=== PATIENT | male | born 1930 | race American Indian/Alaskan Native ===

== ENCOUNTER 2017-01-17 14:57 | Inpatient (IN) | payer MEDICARE, BC ==
[2017-01-17 14:58] VITALS: BMI 29.0
[2017-01-17] MEDS ORDERED: Sodium Chloride 0.9% 500 ML IV ONE ×2 (15:30→16:16)
[2017-01-17 16:18] LABS: BASO % 0.5 % (0.0-2.0); EOS % 0.5 % (0.0-4.0); HEMATOCRIT 35.7 % (35.0-51.0); LYMPH # 1.1 K/uL (1.0-4.3); LYMPH % 11.6 % (20.0-40.0); MEAN CORPUSCULAR HEMOGLOBIN 29.6 pg (27.0-31.0); MEAN CORPUSCULAR HGB CONC 32.9 g/dL (33.0-37.0); MEAN PLATELET VOLUME 8.1 fL (7.2-11.7); MONO # 0.8 K/uL (0.0-0.8); MONO % 8.5 % (0.0-10.0); RED CELL DISTRIBUTION WIDTH 13.6 % (11.5-14.5)
--- NOTE | 2017-01-17 16:23 | C.PDOC ---
History Of Present Illness 86 year old male [facility] for intractable hiccups, nausea, and vomiting x 1 week. Patient states he had coffee ground emesis this morning along with pleuritic pain in his chest. He denies shortness of breath, cough, fever, abdominal painm, dysuria/hematuria. Time Seen by Provider: 01/17/17 15:20 Chief Complaint (Nursing): GI Problem History Per: Patient, Family History/Exam Limitations: no limitations Onset/Duration Of Symptoms: Days (3 weeks) Current Symptoms Are (Timing): Still Present Severity: Moderate Quality Of Discomfort: "Pain" Associated Symptoms: Nausea, Vomiting, Other (Intractable hiccup) Past Medical History Reviewed: Historical Data, Nursing Documentation, Vital Signs Vital Signs: Last Vital Signs Temp 98.6 F 01/20/17 17:28 Pulse 61 01/20/17 17:28 Resp 20 01/20/17 17:28 BP 155/63 H 01/20/17 17:28 Pulse Ox 96 01/20/17 17:28 - Medical History PMH: COPD, HTN, Hypothyroidism Surgical History: Appendectomy (1946), Pacemaker Family History: States: No Known Family Hx - Social History Hx Tobacco Use: No Hx Alcohol Use: No Hx Substance Use: No - Immunization History Hx Tetanus Toxoid Vaccination: No Hx Influenza Vaccination: No Hx Pneumococcal Vaccination: Yes Review Of Systems Except As Marked, All Systems Reviewed And Found Negative. Constitutional: Negative for: Fever, Chills Cardiovascular: Negative for: Chest Pain, Palpitations Respiratory: Positive for: Pleuritic Pain. Negative for: Cough, Shortness of Breath Gastrointestinal: Positive for: Nausea, Vomiting, Other (Coffee ground emesis). Negative for: Abdominal Pain, Diarrhea Genitourinary: Negative for: Dysuria, Hematuria Physical Exam - Physical Exam Appears: Non-toxic, Other (Uncomfortable. Intermittent hiccups.) Skin: Normal Color, Warm, Dry, No Rash Head: Normacephalic Oral Mucosa: Moist Cardiovascular: Rhythm Regular Respiratory: Normal Breath Sounds, No Rales, No Rhonchi, No Wheezing Gastrointestinal/Abdominal: Normal Exam, Bowel Sounds, Soft, No Tenderness Extremity: Normal ROM, No Pedal Edema, No Calf Tenderness Neurological/Psych: Other (awake, alert, mildly confused) ED Course And Treatment - Laboratory Results Result Diagrams: 01/20/17 07:17 01/20/17 07:17 O2 Sat by Pulse Oximetry: 100 (Room air) Pulse Ox Interpretation: Normal Progress Note: Blood work, EKG, CXR, UA ordered and reviewed. Patient given IV NS bolus, IV protinix, IM thorazine, IV zofran. Patient sent to ED by Dr. Alva, plastics fabrication supervisor. He would like patient to be admitted under PMD Dr. Reid, GI is Dr. Espino. 5:55pm- Spoke with hospitalist Dr. Rachel, since patient is insured he should be admitted to medicine insurance verification rep Dr. Neli Larkin. Will discuss with Dr. Alva first. 6:05PM- Spoke with Dr. Alva, he agrees with admission under Dr. Neli Larkin. Dr. eNli Larkin contacted and agrees with admission to his service. 6:10pm- Patient sleeping comfortably, arousable to verbal stimuli. No current vomiting/hiccups. Reevaluation Time: 18:00 Reassessment Condition: Improved (Patient sleeping comfortably - nausea/vomiting /hiccups improved with zofran and thorazine) - Physician Consult Information Physician Contacted: Shireen Reid Outcome Of Conversation: Spoke with PMD, she requests hospitalist admission, she no longer does admissions at [facility]. Disposition - Disposition Disposition: HOSPITALIZED Disposition Time: 18:26 Condition: STABLE - Clinical Impression Clinical Impression: Intractable nausea and vomiting, Coffee ground emesis - Scribe Statement The provider has reviewed the documentation as recorded by the Scribe Markie Juan All medical record entries made by the Scribe were at my direction and personally dictated by me. I have reviewed the chart and agree that the record accurately reflects my personal performance of the history, physical exam, medical decision making, and the department course for this patient. I have also personally directed, reviewed, and agree with the discharge instructions and disposition. Decision To Admit - Pt Status Changed To: Hospital Disposition Of: Inpatient - Admit Certification Admit to Inpatient:: After my assessment, the patient will require hospitalization for at least two midnights. This is because of the severity of symptoms shown, intensity of services needed, and/or the medical risk in this patient being treated as an outpatient. - InPatient: Physician Admission Certification:: see notes - . Bed Request Type: Telemetry Admitting Physician: Eleno Larkin Patient Diagnosis: Coffee ground emesis, Intractable hiccups, Intractable nausea and vomiting
[2017-01-17 16:26] LABS: CHLORIDE 100 mmol/L (98-107)
[2017-01-17 16:27] LABS: MEAN CELL VOLUME 90.2 fL (80.0-94.0); POTASSIUM 4.2 mmol/L (3.6-5.2); SODIUM 138 mmol/L (132-148); WHITE BLOOD COUNT 9.2 K/uL (4.8-10.8)
[2017-01-17 16:28] LABS: INR 1.5
[2017-01-17 16:29] LABS: AST/SGOT 29 U/L (17-59); BILIRUBIN,TOTAL 0.2 mg/dL (0.2-1.3); CARBON DIOXIDE 28 mmol/L (22-30); GFR AFRICAN-AMERICAN > 60
[2017-01-17 16:30] LABS: ALB/GLOB RATIO 1.1 (1.0-2.1); ALKALINE PHOSPHATASE 64 U/L (38-126); ALT/SGPT 39 U/L (21-72); BLOOD UREA NITROGEN 25 mg/dL (9-20); CALCIUM 8.6 mg/dl (8.6-10.4); GLUCOSE,RANDOM 117 mg/dL (75-110); TOTAL PROTEIN 7.1 g/dL (6.3-8.3)
[2017-01-17] MEDS ORDERED: Baclofen 5 mg Tab PO PRN (19:21)
[2017-01-17] MEDS ORDERED: Simethicone 80 mg Chewtab PO PRN (19:21)
[2017-01-17 19:48] LABS: RBC URINE 1 /hpf (0-3); URINE BACTERIA RARE (<OCC); URINE BILIRUBIN NEGATIVE (NEGATIVE); URINE BLOOD NEGATIVE (NEGATIVE); URINE COLOR Yellow (YELLOW); URINE GLUCOSE (UA) NORMAL (Normal); URINE KETONE NEGATIVE (NEGATIVE); URINE LEUKOCYTE ESTERASE NEG Leu/uL (Negative); URINE PROTEIN NEGATIVE (NEGATIVE); URINE UROBILINOGEN NORMAL mg/dL (0.2-1.0); WBC URINE 6 /hpf (0-5)
[2017-01-18] MEDS ORDERED: Phytonadione 10 mg/ml Inj (Adult) SC STA (04:23)
[2017-01-18 07:30] LABS: BASO % 0.5 % (0.0-2.0); EOS # 0.1 K/uL (0.0-0.7); EOS % 1.2 % (0.0-4.0); HEMATOCRIT 32.2 % (35.0-51.0); LYMPH # 1.3 K/uL (1.0-4.3); LYMPH % 17.4 % (20.0-40.0); MEAN CELL VOLUME 90.1 fL (80.0-94.0); MEAN CORPUSCULAR HEMOGLOBIN 29.6 pg (27.0-31.0); MEAN CORPUSCULAR HGB CONC 32.8 g/dL (33.0-37.0); MEAN PLATELET VOLUME 7.9 fL (7.2-11.7); MONO # 0.7 K/uL (0.0-0.8); MONO % 9.5 % (0.0-10.0); NRBC % 0.1 % (0.0-2.0); RED CELL DISTRIBUTION WIDTH 13.5 % (11.5-14.5); WHITE BLOOD COUNT 7.4 K/uL (4.8-10.8)
[2017-01-18 07:39] LABS: CHLORIDE 104 mmol/L (98-107); SODIUM 139 mmol/L (132-148)
[2017-01-18 07:40] LABS: POTASSIUM 3.8 mmol/L (3.6-5.2)
[2017-01-18 07:42] LABS: ALKALINE PHOSPHATASE 51 U/L (38-126); ALT/SGPT 28 U/L (21-72); AST/SGOT 27 U/L (17-59); BILIRUBIN,TOTAL 0.2 mg/dL (0.2-1.3); BLOOD UREA NITROGEN 18 mg/dL (9-20); CARBON DIOXIDE 28 mmol/L (22-30); GFR AFRICAN-AMERICAN > 60; GLUCOSE,RANDOM 102 mg/dL (75-110); TOTAL PROTEIN 5.8 g/dL (6.3-8.3)
[2017-01-18] MEDS: Pantoprazole 40 mg EC Tab PO SCH (10:02)
[2017-01-18] MEDS: POLYETHYLENE GLYCOL 3350 17 GM/Dose PACKET PO SCH (10:02)
--- NOTE | 2017-01-18 11:33 | CP.PCM.CON ---
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 He also had history of chronic intractable hiccups with prior workup by GI, not related to the pacemaker. He lives by himself and he was admitted to [place] with pneumonia. After transfer to subacute rehabilitation in [place], the hiccups was associated with hives and vomiting eventually with coffee-ground he was admitted for further management. Currently on IV Zofran mild improvement Review of Systems - Review of Systems Systems not reviewed;Unavailable: Acuity of Condition - Constitutional Constitutional: Anorexia, Weakness - EENT Eyes: absent: Discharge Ears: absent: Ear Discharge, Dizziness Nose/Mouth/Throat: absent: Epistaxis - Cardiovascular Cardiovascular: absent: Acrocyanosis, Diaphoresis, Palpitations, Syncope - Respiratory Respiratory: absent: Cough, Dyspnea, Hemoptysis - Gastrointestinal Gastrointestinal: Belching, Hematemesis, Vomiting. absent: Abdominal Pain - Genitourinary Genitourinary: absent: Change in Urinary Stream Past Patient History - Past Medical History & Family History Past Medical History?: Yes - Past Social History Smoking Status: Former Smoker - CARDIAC Hx Hypertension: Yes Hx Pacemaker: Yes - PULMONARY Hx Chronic Obstructive Pulmonary Disease (COPD): Yes - NEUROLOGICAL HX Cerebrovascular Accident: Yes - ENDOCRINE/METABOLIC Hx Diabetes Mellitus Type 2: Yes Hx Hypothyroidism: Yes - MUSCULOSKELETAL/RHEUMATOLOGICAL Hx Falls: No - PSYCHIATRIC Hx Substance Use: No - SURGICAL HISTORY Hx Appendectomy: Yes (1945) - ANESTHESIA Hx Anesthesia: Yes Hx Anesthesia Reactions: No Meds Allergies/Adverse Reactions: Allergies Allergy/AdvReac Type Severity Reaction Status Date / Time No Known Allergies Allergy Verified 02/01/15 00:08 - Medications Medications: Current Medications Amlodipine Besylate (Norvasc) 10 mg PO DAILY [facility] Last Admin: 01/18/17 10:02 Dose: 10 mg Baclofen (Lioresal) 2.5 mg PO TID PRN PRN Reason: Hiccups Levetiracetam (Keppra) 500 mg PO Q12H [facility] Last Admin: 01/18/17 06:33 Dose: 500 mg Pantoprazole Sodium (Protonix Ec Tab) 40 mg PO DAILY [facility] Last Admin: 01/18/17 10:02 Dose: 40 mg Polyethylene Glycol (Miralax) 17 gm PO DAILY [facility] Last Admin: 01/18/17 10:02 Dose: 17 gm Simethicone (Mylicon Chew Tab) 80 mg PO Q6H PRN PRN Reason: GI distress Physical Exam - Constitutional Appears: Toxic - Head Exam Head Exam: ATRAUMATIC - Eye Exam Eye Exam: EOMI, PERRL - ENT Exam ENT Exam: Mucous Membranes Moist - Neck Exam Neck exam: Negative for: Lymphadenopathy, Thyromegaly - Respiratory Exam Respiratory Exam: Clear to Auscultation Bilateral. absent: Rales - Cardiovascular Exam Cardiovascular Exam: REGULAR RHYTHM. absent: Systolic Murmur - GI/Abdominal Exam GI & Abdominal Exam: Normal Bowel Sounds. absent: Organomegaly - Rectal Exam Rectal Exam: Deferred - Extremities Exam Extremities exam: Positive for: normal capillary refill. Negative for: calf tenderness - Neurological Exam Neurological exam: Alert, Oriented x3 - Psychiatric Exam Psychiatric exam: Normal Affect - Skin Skin Exam: Dry Results - Vital Signs Recent Vital Signs: Last Vital Signs Temp 97.4 F L 01/18/17 07:00 Pulse 72 01/18/17 07:00 Resp 18 01/18/17 07:00 BP 181/84 H 01/18/17 07:00 Pulse Ox 98 01/18/17 07:00 - Labs Result Diagrams: 01/18/17 07:20 01/18/17 07:20 Labs: Laboratory Results - last 24 hr 01/17/17 01/17/17 01/18/17 18:50 21:43 07:20 WBC 7.4 RBC 3.57 L Hgb 10.6 L Hct 32.2 L MCV 90.1 MCH 29.6 MCHC 32.8 L RDW 13.5 Plt Count 298 MPV 7.9 Neut % (Auto) 71.4 Lymph % (Auto) 17.4 L Pacific % (Auto) 9.5 Eos % (Auto) 1.2 Baso % (Auto) 0.5 Neut # 5.3 Lymph # 1.3 Pacific # 0.7 Eos # 0.1 Baso # 0.0 Sodium 139 Potassium 3.8 Chloride 104 Carbon Dioxide 28 Anion Gap 11 BUN 18 Creatinine 0.8 Est GFR ( Amer) > 60 Est GFR (Non-Af Amer) > 60 POC Glucose (mg/dL) 133 H Random Glucose 102 Calcium 8.0 L Total Bilirubin 0.2 AST 27 ALT 28 Alkaline Phosphatase 51 Total Protein 5.8 L Albumin 2.9 L D Globulin 2.9 Albumin/Globulin Ratio 1.0 Urine Color Yellow Urine Clarity Clear Urine pH 6.0 Ur Specific Gary 1.019 Urine Protein Negative Urine Glucose (UA) Normal Urine Ketones Negative Urine Blood Negative Urine Nitrate Negative Urine Bilirubin Negative Urine Urobilinogen Normal Ur Leukocyte Esterase Neg Urine WBC (Auto) 6 H Urine RBC (Auto) 1 Urine Bacteria Rare Assessment & Plan (1) Hypertension Status: Chronic (2) Status post biventricular cardiac pacemaker insertion Status: Chronic (3) Intractable hiccups Status: Acute
[2017-01-18] MEDS ORDERED: Etomidate 20 mg/10ml Inj IV ONE (12:16)
[2017-01-18] MEDS ORDERED: Propofol 10 mg/ml Inj (20 ML) ONE (12:16)
[2017-01-18] MEDS ORDERED: Midazolam 2 MG/2 ML VIAL ONE (12:16)
[2017-01-18] MEDS ORDERED: Phytonadione 10 mg/ml Inj (Adult) SC ONE (13:00)
[2017-01-18] MEDS ORDERED: Magnesium Citrate Oral SOL (300 ml) PO ONE (13:30)
[2017-01-18] MEDS: Baclofen 5 mg Tab PO PRN (14:53)
[2017-01-18] MEDS ORDERED: Bisacodyl 5mg EC Tab PO ONE (18:00)
--- NOTE | 2017-01-18 18:56 | CP.PCM.HP ---
History of Present Illness - History of Present Illness History of Present Illness: 86-year-old man with a history of hypertension, complete heart block with permanent pacemaker, the generator was changed in 2012. He also had a history of chronic intractable hiccup with prior workup by GI, not related to the pacemaker. He lives by himself and he was admitted to [place] with pneumonia. After transfer to subacute rehabilitation in the [place], the hiccup also associated with hives and vomiting eventually with coffee ground he was admitted for further management. currently on IV Zofran with mild improvement. Present on Admission - Present on Admission Any Indicators Present on Admission: No Past Patient History - Past Medical History & Family History Past Medical History?: Yes - Past Social History Smoking Status: Former Smoker - CARDIAC Hx Hypertension: Yes Hx Pacemaker: Yes - PULMONARY Hx Chronic Obstructive Pulmonary Disease (COPD): Yes - NEUROLOGICAL HX Cerebrovascular Accident: Yes - ENDOCRINE/METABOLIC Hx Diabetes Mellitus Type 2: Yes Hx Hypothyroidism: Yes - MUSCULOSKELETAL/RHEUMATOLOGICAL Hx Falls: No - PSYCHIATRIC Hx Substance Use: No - SURGICAL HISTORY Hx Appendectomy: Yes (1945) - ANESTHESIA Hx Anesthesia: Yes Hx Anesthesia Reactions: No Meds Allergies/Adverse Reactions: Allergies Allergy/AdvReac Type Severity Reaction Status Date / Time No Known Allergies Allergy Verified 03/26/17 02:45 Physical Exam - Constitutional Appears: Well - Head Exam Head Exam: ATRAUMATIC, NORMAL INSPECTION, NORMOCEPHALIC - Eye Exam Eye Exam: EOMI, Normal appearance, PERRL Pupil Exam: NORMAL ACCOMODATION, PERRL - ENT Exam ENT Exam: Mucous Membranes Moist, Normal Exam - Neck Exam Neck exam: Positive for: Normal Inspection - Respiratory Exam Respiratory Exam: Decreased Breath Sounds - Cardiovascular Exam Cardiovascular Exam: REGULAR RHYTHM, +S1, +S2 - GI/Abdominal Exam GI & Abdominal Exam: Diminished Bowel Sounds, Soft - Rectal Exam Rectal Exam: Deferred Results - Vital Signs Recent Vital Signs: Last Vital Signs Temp 98.2 F 01/18/17 15:05 Pulse 60 01/18/17 15:30 Resp 20 01/18/17 15:05 BP 124/56 L 01/18/17 15:05 Pulse Ox 99 01/18/17 15:05 - Labs Result Diagrams: 01/20/17 07:17 01/20/17 07:17 Labs: Laboratory Results - last 24 hr 01/17/17 01/17/1701/18/17 18:50 21:43 07:20 WBC 7.4 RBC 3.57 L Hgb 10.6 L Hct 32.2 L MCV 90.1 MCH 29.6 MCHC 32.8 L RDW 13.5 Plt Count 298 MPV 7.9 Neut % (Auto) 71.4 Lymph % (Auto) 17.4 L Rincon % (Auto) 9.5 Eos % (Auto) 1.2 Baso % (Auto) 0.5 Neut # 5.3 Lymph # 1.3 Rincon # 0.7 Eos # 0.1 Baso # 0.0 Sodium 139 Potassium 3.8 Chloride 104 Carbon Dioxide 28 Anion Gap 11 BUN 18 Creatinine 0.8 Est GFR ( Amer) > 60 Est GFR (Non-Af Amer) > 60 POC Glucose (mg/dL) 133 H Random Glucose 102 Calcium 8.0 L Total Bilirubin 0.2 AST 27 ALT 28 Alkaline Phosphatase 51 Total Protein 5.8 L Albumin 2.9 L D Globulin 2.9 Albumin/Globulin Ratio 1.0 Urine Color Yellow Urine Clarity Clear Urine pH 6.0 Ur Specific Hoffman 1.019 Urine Protein Negative Urine Glucose (UA) Normal Urine Ketones Negative Urine Blood Negative Urine Nitrate Negative Urine Bilirubin Negative Urine Urobilinogen Normal Ur Leukocyte Esterase Neg Urine WBC (Auto) 6 H Urine RBC (Auto) 1 Urine Bacteria Rare Assessment & Plan (1) CVA (cerebral infarction) Status: Acute (2) Coffee ground emesis Status: Acute (3) Intractable nausea and vomiting Status: Acute (4) Muscle weakness Status: Acute (5) Neck stiffness Status: Acute (6) Hypertension Status: Chronic (7) Status post biventricular cardiac pacemaker insertion Status: Chronic - Assessment and Plan (Free Text) Plan: Consult GI Consult cardiology [facility] Thien Cunningham Protonix Miralax Mylicon
[2017-01-18] MEDS: Sucralfate 1 gm/10 ml Oral Susp UD PO SCH (22:09)
[2017-01-18 22:40] LABS: CARCINOEMBRYONIC ANTIGEN 2.5 ng/mL (0-3.0)
[2017-01-19] MEDS: Sucralfate 1 gm/10 ml Oral Susp UD PO SCH ×2 (06:48→21:21)
[2017-01-19 08:47] LABS: BASO # 0.1 K/uL (0.0-0.2); BASO % 0.6 % (0.0-2.0); EOS # 0.1 K/uL (0.0-0.7); LYMPH # 1.4 K/uL (1.0-4.3)
[2017-01-19 08:48] LABS: CHLORIDE 100 mmol/L (98-107)
[2017-01-19 08:49] LABS: SODIUM 136 mmol/L (132-148)
[2017-01-19 08:51] LABS: AST/SGOT 21 U/L (17-59); BILIRUBIN,TOTAL 0.3 mg/dL (0.2-1.3); BLOOD UREA NITROGEN 14 mg/dL (9-20); CARBON DIOXIDE 29 mmol/L (22-30); EOS % 0.6 % (0.0-4.0); GFR AFRICAN-AMERICAN > 60; HEMATOCRIT 31.8 % (35.0-51.0); MEAN CELL VOLUME 90.6 fL (80.0-94.0); MEAN CORPUSCULAR HEMOGLOBIN 29.1 pg (27.0-31.0); MEAN CORPUSCULAR HGB CONC 32.1 g/dL (33.0-37.0); MONO % 8.8 % (0.0-10.0); RED CELL DISTRIBUTION WIDTH 13.4 % (11.5-14.5)
[2017-01-19 08:52] LABS: ALKALINE PHOSPHATASE 54 U/L (38-126); ALT/SGPT 30 U/L (21-72); GLUCOSE,RANDOM 99 mg/dL (75-110); WHITE BLOOD COUNT 11.5 K/uL (4.8-10.8)
[2017-01-19 09:07] LABS: CA 19-9 54.9 U/mL (0-37)
[2017-01-19] MEDS: POLYETHYLENE GLYCOL 3350 17 GM/Dose PACKET PO SCH (09:32)
[2017-01-19] MEDS: Pantoprazole 40 mg EC Tab PO SCH (09:32)
[2017-01-19] MEDS ORDERED: Fluconazole IV 100mg/50 ml NS 50 ML IVPB SCH (10:00)
[2017-01-19] MEDS ORDERED: Phytonadione 10 mg/ml Inj (Adult) SC STA (10:36)
--- NOTE | 2017-01-19 11:07 | PN ---
DATE: 01/19/2017 LOCATION: 657, bed B. This is an 86-year-old male post upper endoscopy yesterday, seen and examined in rounds without repor aayush significant clinical changes. No reported active bleeding. The entire chart is reviewed, includ ing but not limited to most recent lab and the radiology study results, current and the previous medi cation list, current and the previous medical events with allergies to medication list. Case discussed at length with the staff, and the patient had subsequent drop of hemoglobin to 10.2, h ematocrit 31.8 with leukocytosis of 11.5 with low calcium 8.0, and low albumin 3.0, low total protein 6.0. His CA 19-9 was reported to be elevated to 54.9. His PT still elevated at 16.9, but normal PTT. PHYSICAL EXAMINATION: GENERAL: An 86-year-old male, appears to be awake, alert, oriented. VITAL SIGNS: Afebrile with pulse of 64, respiratory rate 20-22, with blood pressure of 136/64. HEENT: Showed pale, dry oral mucoid membrane. Nonicteric sclerae. LUNGS: Few scattered crepitations with decreased air entry at bases. HEART: Positive S1 and S2. ABDOMEN: Soft with mild generalized tenderness. No mass or organomegaly. No rebound tenderness or guarding. RECTAL: Positive tone, guaiac positive stool. EXTREMITIES: With mild lower extremity edematous changes. No clubbing or cyanosis. NEUROLOGIC: No reported new neurological deficits, sensory or motor. IMPRESSION: 1. Reexacerbation of peptic ulcer disease with hiatus hernia, moderate to large in size. 2. Reported hematemesis before, none this morning. 3. Anemia, rule out lower gastrointestinal tract source of blood loss also versus possible occult ga strointestinal malignancy. 4. Known history of hypothyroidism, hypertension, and chronic obstructive pulmonary disease, as well as status post appendectomy. 5. Cardiac arrhythmia with status post pacemaker insertion. 6. Coagulopathy, most likely drug-induced. SUGGESTIONS: 1. I agree with your plan. 2. Vitamin K subQ. 3. Antireflux measures. The patient is for colonoscopy after adequate and slow preparation. Brian Henley MD cc: 14 TT: 01/19/2017 11:06:19 Confirmation # [id number] Dictation # [id number]
[2017-01-19] MEDS: Benzocaine/Menthol (Cepacol) Lozenge PO PRN (12:10)
[2017-01-19] MEDS: Baclofen 5 mg Tab PO PRN ×2 (12:11→21:21)
[2017-01-19] MEDS ORDERED: Peg-Electrolyte Oral Soln 4L (Golytely) PO ONE (13:00)
[2017-01-19] MEDS ORDERED: Bisacodyl 5mg EC Tab PO ONE (17:00)
--- NOTE | 2017-01-19 17:11 | CP.PCM.PN ---
Subjective - Date & Time of Evaluation Date of Evaluation: 01/19/17 Time of Evaluation: 12:40 - Subjective Subjective: clinically same Objective - Vital Signs/Intake and Output Vital Signs (last 24 hours): Temp Pulse Resp BP Pulse Ox 98.3 F 60 20 151/61 H 97 01/19/17 15:56 01/19/17 15:56 01/19/17 15:56 01/19/17 15:56 01/19/17 15:56 Intake and Output: 01/19/17 01/19/17 06:59 18:59 Output Total 200 Balance -200 - Medications Medications: Current Medications Amlodipine Besylate (Norvasc) 10 mg PO DAILY [facility] Last Admin: 01/19/17 09:32 Dose: 10 mg Baclofen (Lioresal) 5 mg PO TID PRN PRN Reason: Hiccups Last Admin: 01/19/17 12:11 Dose: 5 mg Benzocaine/Menthol (Cepacol Sore Throat) 1 karine PO Q4 PRN PRN Reason: Sore Throat Last Admin: 01/19/17 12:10 Dose: 1 karine Fluconazole (Diflucan Iv 100 Mg/50 Ml Ns) 50 mls @ 100 mls/hr IVPB DAILY [facility] Last Admin: 01/19/17 09:33 Dose: 100 mls/hr Levetiracetam (Keppra) 500 mg PO Q12H [facility] Last Admin: 01/19/17 06:48 Dose: 500 mg Metoclopramide HCl (Reglan) 5 mg IVP Q12 [facility] Last Admin: 01/19/17 09:32 Dose: 5 mg Pantoprazole Sodium (Protonix Ec Tab) 40 mg PO DAILY [facility] Last Admin: 01/19/17 09:32 Dose: 40 mg Polyethylene Glycol (Miralax) 17 gm PO DAILY [facility] Last Admin: 01/19/17 09:32 Dose: 17 gm Simethicone (Mylicon Chew Tab) 80 mg PO Q6H PRN PRN Reason: GI distress Sucralfate (Carafate Oral Susp) 1 gm PO ACBHS [facility] Last Admin: 01/19/17 06:48 Dose: 1 gm - Labs Labs: 01/19/17 08:33 01/19/17 08:33 PT 16.9 SECONDS (9.7-12.2) H 01/17/17 16:09 INR 1.5 01/17/17 16:09 APTT 32 SECONDS (21-34) 01/17/17 16:09 - Constitutional Appears: Well - Head Exam Head Exam: ATRAUMATIC, NORMAL INSPECTION, NORMOCEPHALIC - Eye Exam Eye Exam: EOMI, Normal appearance, PERRL Pupil Exam: NORMAL ACCOMODATION, PERRL - ENT Exam ENT Exam: Mucous Membranes Moist, Normal Exam - Neck Exam Neck Exam: Full ROM, Normal Inspection. absent: Lymphadenopathy - Respiratory Exam Respiratory Exam: Decreased Breath Sounds - Cardiovascular Exam Cardiovascular Exam: REGULAR RHYTHM, +S1, +S2 - GI/Abdominal Exam GI & Abdominal Exam: Soft, Diminished Bowel Sounds - Rectal Exam Rectal Exam: Deferred Assessment and Plan (1) CVA (cerebral infarction) Status: Acute (2) Coffee ground emesis Status: Acute (3) Intractable nausea and vomiting Status: Acute (4) Muscle weakness Status: Acute (5) Neck stiffness Status: Acute (6) Hypertension Status: Chronic (7) Status post biventricular cardiac pacemaker insertion Status: Chronic - Assessment and Plan (Free Text) Plan: Continue as ordered Continue Tia Alva
--- NOTE | 2017-01-19 20:18 | CP.PCM.PN ---
Subjective - Date & Time of Evaluation Date of Evaluation: 01/19/17 Time of Evaluation: 16:00 - Subjective Subjective: improved, still with hiccups, EGD with esophageal gisella Objective - Vital Signs/Intake and Output Vital Signs (last 24 hours): Temp Pulse Resp BP Pulse Ox 98.3 F 60 20 151/61 H 97 01/19/17 15:56 01/19/17 15:56 01/19/17 15:56 01/19/17 15:56 01/19/17 15:56 - Medications Medications: Current Medications Amlodipine Besylate (Norvasc) 10 mg PO DAILY [facility] Last Admin: 01/19/17 09:32 Dose: 10 mg Baclofen (Lioresal) 5 mg PO TID PRN PRN Reason: Hiccups Last Admin: 01/19/17 12:11 Dose: 5 mg Benzocaine/Menthol (Cepacol Sore Throat) 1 karine PO Q4 PRN PRN Reason: Sore Throat Last Admin: 01/19/17 12:10 Dose: 1 karine Fluconazole (Diflucan Iv 100 Mg/50 Ml Ns) 50 mls @ 100 mls/hr IVPB DAILY [facility] Last Admin: 01/19/17 09:33 Dose: 100 mls/hr Levetiracetam (Keppra) 500 mg PO Q12H [facility] Last Admin: 01/19/17 06:48 Dose: 500 mg Metoclopramide HCl (Reglan) 5 mg IVP Q12 [facility] Last Admin: 01/19/17 09:32 Dose: 5 mg Pantoprazole Sodium (Protonix Ec Tab) 40 mg PO DAILY [facility] Last Admin: 01/19/17 09:32 Dose: 40 mg Polyethylene Glycol (Miralax) 17 gm PO DAILY [facility] Last Admin: 01/19/17 09:32 Dose: 17 gm Simethicone (Mylicon Chew Tab) 80 mg PO Q6H PRN PRN Reason: GI distress Sucralfate (Carafate Oral Susp) 1 gm PO ACBHS [facility] Last Admin: 01/19/17 06:48 Dose: 1 gm - Labs Labs: 01/19/17 08:33 01/19/17 08:33 PT 16.9 SECONDS (9.7-12.2) H 01/17/17 16:09 INR 1.5 01/17/17 16:09 APTT 32 SECONDS (21-34) 01/17/17 16:09 - Constitutional Appears: Non-toxic - Head Exam Head Exam: ATRAUMATIC - Eye Exam Eye Exam: EOMI - ENT Exam ENT Exam: Mucous Membranes Moist - Neck Exam Neck Exam: absent: Lymphadenopathy, Thyromegaly - Respiratory Exam Respiratory Exam: Clear to Ausculation Bilateral. absent: Rales - Cardiovascular Exam Cardiovascular Exam: REGULAR RHYTHM. absent: Murmur - GI/Abdominal Exam GI & Abdominal Exam: Normal Bowel Sounds. absent: Organomegaly - Rectal Exam Rectal Exam: Deferred - Extremities Exam Extremities Exam: Normal Capillary Refill. absent: Calf Tenderness - Neurological Exam Neurological Exam: Alert, Oriented x3 - Psychiatric Exam Psychiatric exam: Normal Mood - Skin Skin Exam: Dry Assessment and Plan (1) Hypertension Status: Chronic (2) Status post biventricular cardiac pacemaker insertion Status: Chronic (3) Intractable hiccups Status: Acute
[2017-01-20 07:39] LABS: CHLORIDE 99 mmol/L (98-107)
[2017-01-20 07:40] LABS: POTASSIUM 3.4 mmol/L (3.6-5.2); SODIUM 138 mmol/L (132-148)
[2017-01-20 07:42] LABS: BILIRUBIN,TOTAL 0.4 mg/dL (0.2-1.3); CARBON DIOXIDE 28 mmol/L (22-30); GFR AFRICAN-AMERICAN > 60
[2017-01-20 07:43] LABS: ALB/GLOB RATIO 1.1 (1.0-2.1); ALKALINE PHOSPHATASE 60 U/L (38-126); ALT/SGPT 30 U/L (21-72); AST/SGOT 29 U/L (17-59); BLOOD UREA NITROGEN 10 mg/dL (9-20); CALCIUM 8.2 mg/dl (8.6-10.4); GLUCOSE,RANDOM 100 mg/dL (75-110); TOTAL PROTEIN 6.4 g/dL (6.3-8.3)
[2017-01-20 07:47] LABS: BASO % 0.4 % (0.0-2.0); EOS # 0.1 K/uL (0.0-0.7); EOS % 1.3 % (0.0-4.0); LYMPH # 1.3 K/uL (1.0-4.3); LYMPH % 13.7 % (20.0-40.0); MEAN CELL VOLUME 89.8 fL (80.0-94.0); MEAN CORPUSCULAR HEMOGLOBIN 29.7 pg (27.0-31.0); MEAN CORPUSCULAR HGB CONC 33.1 g/dL (33.0-37.0); MEAN PLATELET VOLUME 8.2 fL (7.2-11.7); MONO % 10.5 % (0.0-10.0); RED CELL DISTRIBUTION WIDTH 13.8 % (11.5-14.5); WHITE BLOOD COUNT 9.2 K/uL (4.8-10.8)
[2017-01-20] MEDS ORDERED: Potassium Chloride 20 mEq ER Tab PO SCH (10:15)
[2017-01-20] MEDS ORDERED: Potassium Chloride 20 mEq/15 ml LIQ UD PO ONE (11:00)
--- NOTE | 2017-01-20 11:40 | CP.PCM.PN ---
Subjective - Date & Time of Evaluation Date of Evaluation: 01/20/17 Time of Evaluation: 12:00 - Subjective Subjective: Mild improvement, no hematochezia and no melana observe with GI, colonoscopy done, divertic Objective - Vital Signs/Intake and Output Vital Signs (last 24 hours): Temp Pulse Resp BP Pulse Ox 98.3 F 60 18 138/65 98 01/20/17 07:05 01/20/17 07:05 01/20/17 07:05 01/20/17 07:05 01/20/17 07:05 Intake and Output: 01/20/17 01/20/17 06:59 18:59 Intake Total 0 Balance 0 - Medications Medications: Current Medications Amlodipine Besylate (Norvasc) 10 mg PO DAILY [facility] Last Admin: 01/19/17 09:32 Dose: 10 mg Baclofen (Lioresal) 5 mg PO TID PRN PRN Reason: Hiccups Last Admin: 01/19/17 21:21 Dose: 5 mg Benzocaine/Menthol (Cepacol Sore Throat) 1 karine PO Q4 PRN PRN Reason: Sore Throat Last Admin: 01/19/17 12:10 Dose: 1 karine Fluconazole (Diflucan Iv 100 Mg/50 Ml Ns) 50 mls @ 100 mls/hr IVPB DAILY [facility] Last Admin: 01/19/17 09:33 Dose: 100 mls/hr Levetiracetam (Keppra) 500 mg PO Q12H [facility] Last Admin: 01/20/17 08:45 Dose: 500 mg Metoclopramide HCl (Reglan) 5 mg IVP Q12 [facility] Last Admin: 01/19/17 21:17 Dose: 5 mg Pantoprazole Sodium (Protonix Ec Tab) 40 mg PO DAILY [facility] Last Admin: 01/19/17 09:32 Dose: 40 mg Polyethylene Glycol (Miralax) 17 gm PO DAILY [facility] Last Admin: 01/19/17 09:32 Dose: 17 gm Simethicone (Mylicon Chew Tab) 80 mg PO Q6H PRN PRN Reason: GI distress Sucralfate (Carafate Oral Susp) 1 gm PO ACBHS [facility] Last Admin: 01/19/17 21:21 Dose: 1 gm - Labs Labs: 01/20/17 07:17 04/21/17 07:17 PT 16.9 SECONDS (9.7-12.2) H 01/17/17 16:09 INR 1.5 01/17/17 16:09 APTT 32 SECONDS (21-34) 01/17/17 16:09 - Constitutional Appears: Non-toxic - Head Exam Head Exam: ATRAUMATIC - Eye Exam Eye Exam: EOMI - ENT Exam ENT Exam: Mucous Membranes Moist - Neck Exam Neck Exam: absent: Lymphadenopathy, Thyromegaly - Respiratory Exam Respiratory Exam: Clear to Ausculation Bilateral. absent: Rales - Cardiovascular Exam Cardiovascular Exam: REGULAR RHYTHM, Murmur - GI/Abdominal Exam GI & Abdominal Exam: Normal Bowel Sounds. absent: Organomegaly - Rectal Exam Rectal Exam: Deferred - Extremities Exam Extremities Exam: Normal Capillary Refill. absent: Calf Tenderness - Neurological Exam Neurological Exam: Alert, Oriented x3 - Psychiatric Exam Psychiatric exam: Normal Mood - Skin Skin Exam: Dry Assessment and Plan (1) Hypertension Status: Chronic (2) Status post biventricular cardiac pacemaker insertion Status: Chronic (3) Intractable hiccups Status: Acute
[2017-01-20] MEDS ORDERED: Propofol 10 mg/ml Inj (20 ML) ONE (11:56)
[2017-01-20] MEDS: Pantoprazole 40 mg EC Tab PO SCH (13:49)
[2017-01-20] MEDS: Baclofen 5 mg Tab PO PRN (13:50)
[2017-01-20] MEDS: Benzocaine/Menthol (Cepacol) Lozenge PO PRN (14:15)
--- NOTE | 2017-01-20 14:41 | CP.PCM.PN ---
Subjective - Date & Time of Evaluation Date of Evaluation: 01/20/17 Time of Evaluation: 12:20 - Subjective Subjective: clinically same Objective - Vital Signs/Intake and Output Vital Signs (last 24 hours): Temp Pulse Resp BP Pulse Ox 98.2 F 60 16 143/62 100 01/20/17 12:20 01/20/17 12:50 01/20/17 12:50 01/20/17 12:50 01/20/17 12:50 Intake and Output: 01/20/17 01/20/17 06:59 18:59 Intake Total 0 100 Balance 0 100 - Medications Medications: Current Medications Amlodipine Besylate (Norvasc) 10 mg PO DAILY [facility] Last Admin: 01/20/17 13:50 Dose: 10 mg Baclofen (Lioresal) 5 mg PO TID PRN PRN Reason: Hiccups Last Admin: 01/20/17 13:50 Dose: 5 mg Benzocaine/Menthol (Cepacol Sore Throat) 1 karine PO Q4 PRN PRN Reason: Sore Throat Last Admin: 01/20/17 14:15 Dose: 1 karine Fluconazole (Diflucan Iv 100 Mg/50 Ml Ns) 50 mls @ 100 mls/hr IVPB DAILY [facility] Last Admin: 01/19/17 09:33 Dose: 100 mls/hr Levetiracetam (Keppra) 500 mg PO Q12H [facility] Last Admin: 01/20/17 08:45 Dose: 500 mg Metoclopramide HCl (Reglan) 5 mg PO TID [facility] Pantoprazole Sodium (Protonix Ec Tab) 40 mg PO DAILY [facility] Last Admin: 01/20/17 13:49 Dose: 40 mg Polyethylene Glycol (Miralax) 17 gm PO DAILY [facility] Last Admin: 01/19/17 09:32 Dose: 17 gm Simethicone (Mylicon Chew Tab) 80 mg PO Q6H PRN PRN Reason: GI distress Sucralfate (Carafate Oral Susp) 1 gm PO ACBHS [facility] Last Admin: 01/19/17 21:21 Dose: 1 gm - Labs Labs: 01/20/17 07:17 01/20/17 07:17 PT 16.9 SECONDS (9.7-12.2) H 01/17/17 16:09 INR 1.5 01/17/17 16:09 APTT 32 SECONDS (21-34) 01/17/17 16:09 - Constitutional Appears: Well - Head Exam Head Exam: ATRAUMATIC, NORMAL INSPECTION, NORMOCEPHALIC - Eye Exam Eye Exam: EOMI, Normal appearance, PERRL Pupil Exam: NORMAL ACCOMODATION, PERRL - ENT Exam ENT Exam: Mucous Membranes Moist, Normal Exam - Neck Exam Neck Exam: Full ROM, Normal Inspection. absent: Lymphadenopathy - Respiratory Exam Respiratory Exam: Decreased Breath Sounds - Cardiovascular Exam Cardiovascular Exam: REGULAR RHYTHM, +S1, +S2 - GI/Abdominal Exam GI & Abdominal Exam: Soft, Diminished Bowel Sounds - Rectal Exam Rectal Exam: Deferred Assessment and Plan - Assessment and Plan (Free Text) Plan: Status post EGD and colonoscopy Plan discharge to longterm Continue home medications Follow-up with GI doctor Follow-up with graduate student Return to emergency department if symptoms recurs next
--- NOTE | 2017-01-20 15:33 | CP.PCM.PN ---
Subjective - Date & Time of Evaluation Date of Evaluation: 01/20/17 Time of Evaluation: 10:00 - Subjective Subjective: Dr. Larkin service: Patient is seen in the room. Patient complained to me of having fits of hiccups where he has been vomiting afterward. He says these events can happen at any time. Objective - Vital Signs/Intake and Output Vital Signs (last 24 hours): Temp Pulse Resp BP Pulse Ox 98.2 F 60 16 143/62 100 01/20/17 12:20 01/20/17 12:50 01/20/17 12:50 01/20/17 12:50 01/20/17 12:50 Intake and Output: 01/20/17 01/20/17 06:59 18:59 Intake Total 0 100 Balance 0 100 - Medications Medications: Current Medications Amlodipine Besylate (Norvasc) 10 mg PO DAILY [facility] Last Admin: 01/20/17 13:50 Dose: 10 mg Baclofen (Lioresal) 5 mg PO TID PRN PRN Reason: Hiccups Last Admin: 01/20/17 13:50 Dose: 5 mg Benzocaine/Menthol (Cepacol Sore Throat) 1 karine PO Q4 PRN PRN Reason: Sore Throat Last Admin: 01/20/17 14:15 Dose: 1 karine Fluconazole (Diflucan Iv 100 Mg/50 Ml Ns) 50 mls @ 100 mls/hr IVPB DAILY [facility] Last Admin: 01/19/17 09:33 Dose: 100 mls/hr Levetiracetam (Keppra) 500 mg PO Q12H [facility] Last Admin: 01/20/17 08:45 Dose: 500 mg Metoclopramide HCl (Reglan) 5 mg PO TID [facility] Pantoprazole Sodium (Protonix Ec Tab) 40 mg PO DAILY [facility] Last Admin: 01/20/17 13:49 Dose: 40 mg Polyethylene Glycol (Miralax) 17 gm PO DAILY [facility] Last Admin: 01/19/17 09:32 Dose: 17 gm Simethicone (Mylicon Chew Tab) 80 mg PO Q6H PRN PRN Reason: GI distress Sucralfate (Carafate Oral Susp) 1 gm PO ACBHS [facility] Last Admin: 01/19/17 21:21 Dose: 1 gm - Labs Labs: 01/20/17 07:17 01/20/17 07:17 PT 16.9 SECONDS (9.7-12.2) H 01/17/17 16:09 INR 1.5 01/17/17 16:09 APTT 32 SECONDS (21-34) 01/17/17 16:09 - Constitutional Appears: Non-toxic, No Acute Distress - Head Exam Head Exam: NORMAL INSPECTION - Eye Exam Eye Exam: Normal appearance - Respiratory Exam Respiratory Exam: Clear to Ausculation Bilateral. absent: Rhonchi, Wheezes - Cardiovascular Exam Cardiovascular Exam: REGULAR RHYTHM - GI/Abdominal Exam GI & Abdominal Exam: Soft, Normal Bowel Sounds. absent: Tenderness - Extremities Exam Extremities Exam: Normal Inspection. absent: Pedal Edema - Psychiatric Exam Psychiatric exam: Normal Affect, Normal Mood - Skin Skin Exam: Normal Color. absent: Pallor Assessment and Plan (1) Intractable hiccups Assessment & Plan: Patient had EGD and colonoscopy, [facility]. Status: Acute (2) Hypertension Status: Chronic (3) Status post biventricular cardiac pacemaker insertion Status: Chronic
[2017-01-20 17:30] VITALS: BP 155/63; PULSE 61; RESP 20; TEMP 98.6
--- NOTE | 2017-01-22 08:31 | CON ---
DATE: 01/17/[address] Brian Henley to Dr. Kisha Larkin. I was called for GI consultation by the admitting MD. The patient is seen and fully examined on 01/17 as requested by the admitting medical team as well as the staff on the floor. The entire chart is reviewed, including but not limited to, most recent lab and radiology study results as well as cu rrent and previous medication lists. Most recent lab results as well as all the available lab and ra diology study results, current and previous medication lists, current and previous medical events, al lergies to medications list as well as all the available current and previous medical events were rev iewed. Case discussed at length with the staff. This is an 86-year-old male who was admitted to the hospital through the Emergency Room with persiste nt intractable hiccups, nausea, recurrent episodes of vomiting associated with coffee ground material . The patient had such episodes before for the last several months to years. Also reports change of bowel movement habits, but no reported chest pain or palpitation with intermittent periods of crampy abdominal pain. No chills or fever. After being admitted to the hospital, patient was found to have low hemoglobin of 11.7 with thrombocy tosis of 340. His blood glucose level was elevated to 117 with increased BUN at 25, but normal creat inine. PAST MEDICAL HISTORY: Including, but not limited to: 1. COPD, hypothyroidism, hypertension, peptic ulcer disease. 2. History of cardiac arrhythmia with status post pacemaker insertion. 3. Status post appendectomy. FAMILY HISTORY: Unknown. SOCIAL HISTORY: No known history of cigarette smoking or alcohol intake. ALLERGY TO MEDICATION: Unclear. CURRENT MEDICATIONS: List was reviewed. PHYSICAL EXAMINATION: GENERAL: An 86-year-old male, awake, alert, oriented, complaining of persistent, but painful hiccups . VITAL SIGNS: Afebrile with pulse of 80, respiratory rate 20-22, blood pressure 174/70. HEENT: Showed pale, dry oral mucoid membrane. Nonicteric sclerae. LUNGS: Few scattered crepitation, decreased air entry at bases. HEART: Positive S1 and S2. LYMPH NODES: No lymphadenitis or lymphadenopathy. ABDOMEN: Soft with generalized tenderness. No mass or organomegaly. No rebound tenderness or guard ing, but with mild generalized tenderness and distention. RECTAL: The patient refused. EXTREMITIES: Without significant edema, clubbing or cyanosis. NEUROLOGIC: No reported new neurological deficit, sensory or motor. IMPRESSION: 1. Anemia, to rule out gastrointestinal bleeding, upper versus lower. 2. Hiccups with possible phrenic nerve irritation of unclear etiology. 3. To rule out occult gastrointestinal malignancy. 4. Past medical history including, but not limited to, hypothyroidism, chronic obstructive pulmonary disease, hypertension, cardiac arrhythmia with status post pacemaker insertion which could be also o ne of the reasons the patient has hiccups. 5. Known history of status post appendectomy. SUGGESTION: 1. Continue current management. 2. Proton pump inhibitors. 3. Sectional abdominal and chest CAT scan. 4. Cancer markers. 5. Endoscopic evaluation of the gastrointestinal tract when the patient is more stable clinically an d after adequate preparation. 6. Guaiac all the stool daily x 3. 7. The patient may benefit from Reglan IV, small dose, with H2 blockers as needed. 8. Further recommendations to follow. Thank you for letting me participate in your patient's case management. Brian Henley MD cc: 14 TT: 01/22/2017 08:30:31 Confirmation # [id number] Dictation # [id number]
[2017-01-22 18:20] VITALS: O2SAT 100
== END 2017-01-20 16:50 | DRG 369 ==
LOC: C.ER 14:57 → C.9E 18:26 → C.6T 19:58
PROVIDERS: ADMIT Internal Medicine Nephrology; ATTEND Internal Medicine Nephrology
PROC: 0DB68ZX Excision of Stomach, Via Natural or Artificial Opening Endoscopic, Diagnostic (ICD-10-PCS; principal; 2017-01-18 12:12)
PROC: 0DBM8ZX Excision of Descending Colon, Via Natural or Artificial Opening Endoscopic, Diagnostic (ICD-10-PCS; 2017-01-20)
DX: B37.81 Candidal esophagitis (principal); D68.8 Other specified coagulation defects; K92.0 Hematemesis; J44.9 Chronic obstructive pulmonary disease, unspecified; K27.9 Peptic ulcer, site unspecified, unspecified as acute or chronic, without hemorrhage or perforation; D50.0 Iron deficiency anemia secondary to blood loss (chronic); R06.6 Hiccough; I10 Essential (primary) hypertension; K29.00 Acute gastritis without bleeding; I49.9 Cardiac arrhythmia, unspecified; Z95.0 Presence of cardiac pacemaker; E03.9 Hypothyroidism, unspecified; K44.9 Diaphragmatic hernia without obstruction or gangrene; K57.30 Diverticulosis of large intestine without perforation or abscess without bleeding; K64.4 Residual hemorrhoidal skin tags; Z86.73 Personal history of transient ischemic attack (TIA), and cerebral infarction without residual deficits; Z87.891 Personal history of nicotine dependence

== ENCOUNTER 2017-03-26 02:28 | Emergency (ER) | payer MEDICARE, BC ==
[2017-03-26 02:28] VITALS: BMI 29.0
[2017-03-26 03:46] VITALS: TEMP 99.6
[2017-03-26 04:36] LABS: BASO # 0.1 K/uL (0.0-0.2); BASO % 0.8 % (0.0-2.0); EOS % 0.2 % (0.0-4.0); HEMATOCRIT 36.4 % (35.0-51.0); LYMPH # 1.6 K/uL (1.0-4.3); LYMPH % 15.7 % (20.0-40.0); MEAN CORPUSCULAR HEMOGLOBIN 29.5 pg (27.0-31.0); MEAN CORPUSCULAR HGB CONC 33.2 g/dL (33.0-37.0); MEAN PLATELET VOLUME 8.6 fL (7.2-11.7); MONO # 1.5 K/uL (0.0-0.8); MONO % 14.5 % (0.0-10.0); NRBC % 0.1 % (0.0-2.0); RED CELL DISTRIBUTION WIDTH 14.1 % (11.5-14.5); WHITE BLOOD COUNT 10.1 K/uL (4.8-10.8)
[2017-03-26 04:43] LABS: INR 1.2
[2017-03-26 04:45] LABS: CHLORIDE 97 mmol/L (98-107); POTASSIUM 3.9 mmol/L (3.6-5.2); SODIUM 136 mmol/L (132-148)
[2017-03-26 04:47] LABS: BILIRUBIN,TOTAL 0.7 mg/dL (0.2-1.3); GFR AFRICAN-AMERICAN > 60
[2017-03-26 04:48] LABS: ALB/GLOB RATIO 0.9 (1.0-2.1); ALKALINE PHOSPHATASE 83 U/L (38-126); ALT/SGPT 24 U/L (21-72); AST/SGOT 23 U/L (17-59); BLOOD UREA NITROGEN 17 mg/dL (9-20); CALCIUM 9.2 mg/dl (8.6-10.4); CARBON DIOXIDE 28 mmol/L (22-30); GLUCOSE,RANDOM 117 mg/dL (75-110); MAGNESIUM 1.9 mg/dL (1.6-2.3)
[2017-03-26] MEDS ORDERED: Morphine 4 MG/ML VIAL ONE (06:11)
--- NOTE | 2017-03-26 06:54 | C.PDOC ---
History Of Present Illness Pt c/o neck pain/stiffness associated with headache and sore throat. Denies fever. Time Seen by Provider: 03/26/17 03:20 Chief Complaint (Nursing): Headache History Per: Patient, Family Onset/Duration Of Symptoms: Days (about 1 week), Gradual Current Symptoms Are (Timing): Worse Severity: Moderate Quality: "Pain" Additional History Per: Prior Records Past Medical History Reviewed: Historical Data, Nursing Documentation, Vital Signs Vital Signs: Last Vital Signs Temp 99.6 F 03/26/17 02:41 Pulse 62 03/26/17 06:15 Resp 14 03/26/17 06:15 BP 176/72 H 03/26/17 06:15 Pulse Ox 97 03/26/17 06:55 - Medical History PMH: COPD, HTN, Hypothyroidism Surgical History: Appendectomy (194), Pacemaker - [facility] Procedures EXCISION OF DESCENDING COLON, ENDO, DIAGN (01/17/17) EXCISION OF STOMACH, ENDO, DIAGN (01/17/17) Family History: States: Unknown Family Hx - Social History Hx Tobacco Use: No Hx Alcohol Use: No Hx Substance Use: No - Immunization History Hx Tetanus Toxoid Vaccination: No Hx Influenza Vaccination: No Hx Pneumococcal Vaccination: Yes Review Of Systems Except As Marked, All Systems Reviewed And Found Negative. Constitutional: Negative for: Fever Eyes: Negative for: Vision Change ENT: Positive for: Throat Pain Cardiovascular: Negative for: Chest Pain Respiratory: Negative for: Cough, Shortness of Breath Gastrointestinal: Negative for: Nausea, Vomiting, Abdominal Pain Musculoskeletal: Positive for: Neck Pain. Negative for: Back Pain Skin: Negative for: Rash Neurological: Positive for: Headache. Negative for: Weakness, Numbness, Incoordination, Seizures, Altered Mental Status Physical Exam - Physical Exam Appears: Non-toxic, No Acute Distress Skin: Normal Color, Warm, Dry Head: Atraumatic, Normacephalic Eye(s): bilateral: PERRL, EOMI Oral Mucosa: Moist, No Drooling, Trismus (mild) Tongue: Normal Appearing, No Swelling Throat: No Exudate, No Drooling, No Mass Neck: Paracervical Tenderness, Other (muscle spasm) Cardiovascular: Rhythm Regular Respiratory: Normal Breath Sounds, No Accessory Muscle Use Gastrointestinal/Abdominal: Soft, No Tenderness Extremity: Normal ROM Neurological/Psych: Oriented x3, Normal Speech, Normal Motor, Normal Sensation ED Course And Treatment - Laboratory Results Result Diagrams: 03/26/17 04:33 03/26/17 04:33 Lab Interpretation: No Acute Changes O2 Sat by Pulse Oximetry: 97 Pulse Ox Interpretation: Normal - CT Scan/US CT head Other Rad Studies (CT/US): Read By Radiologist, Radiology Report Reviewed CT/US Interpretation: No acute findings. CT soft tissue neck Other Rad Studies (CT/US): Read By Radiologist, Radiology Report Reviewed CT/US Interpretation: No acute findings. - Physician Consult Information Physician Contacted: Shireen Reid ([email or web address]) Outcome Of Conversation: She wants pt admitted under hospitalist service. Progress - Interventions Interventions:: Observation - Medications Administered Oral: Other (Flexeril) Intravenous: Opiate - Data Reviewed Data Reviewed: Lab, Diagnostic imaging, Old records - Patient Status Patient status: Partially improved - Continuity of Care Discussed patient case with:: Patient, Family-HIPPA compliant, ED Nurse, PMD Disposition - Disposition Disposition Time: 07:00 Condition: FAIR - Clinical Impression Clinical Impression: Headache, Neck stiffness, Throat pain Physician Patient Turnover Patient Signed Over To: Enid Santiago Handoff Comments: pending call back from hospitalist for admission.
[2017-03-26 08:46] VITALS: BP 141/69; PULSE 81; RESP 16; O2SAT 99
--- NOTE | 2017-03-26 10:27 | CT ---
PROCEDURE: CT HEAD WITHOUT CONTRAST. HISTORY: Headache, HTN COMPARISON: 02/01/2015 TECHNIQUE: Axial computed tomography images were obtained through the head/brain without intravenous contrast. Radiation dose: Total exam DLP = 932.92 mGy-cm. This CT exam was performed using one or more of the following dose reduction techniques: Automated exposure control, adjustment of the mA and/or kV according to patient size, and/or use of iterative reconstruction technique. FINDINGS: HEMORRHAGE: No intracranial hemorrhage. BRAIN: No mass effect or edema. High right frontoparietal encephalomalacia consistent with old infarct. The degree of encephalomalacia has increased since prior examination but no further extension of territory involved. Small bilateral old basal ganglia lacunar infarcts. No evidence of acute infarct. VENTRICLES: Unremarkable. No hydrocephalus. CALVARIUM: Unremarkable. PARANASAL SINUSES: Minimal mucosal thickening right maxillary sinus. MASTOID AIR CELLS: Unremarkable as visualized. No inflammatory changes. OTHER FINDINGS: None. IMPRESSION: No evidence of intracranial mass, hemorrhage or acute infarct. 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 Preliminary interpretation of this examination was reported by [facility] [employer] at 6:33 a.m. on 03/26/2017. There is concurrence of this report with the preliminary interpretation.
--- NOTE | 2017-03-26 12:57 | CT ---
PROCEDURE: CT NECK WITHOUT CONTRAST HISTORY: Neck/throat pain COMPARISON: None. TECHNIQUE: CT of the neck without intravenous contrast. Coronal and sagittal reformats generated. Radiation dose: DLP 474.4 mGy-cm This CT exam was performed using one or more of the following dose reduction techniques: Automated exposure control, adjustment of the mA and/or kV according to patient size, and/or use of iterative reconstruction technique. FINDINGS: NASOPHARYNX: Asymmetry of the nasopharynx. There is aeration of the left eustachian tube and not of the right. There is no clear mass identified. Correlation with direct visualization is suggested. SUPRAHYOID NECK: Unremarkable oropharynx, oral cavity, parapharyngeal space and retropharyngeal space. INFRAHYOID NECK: Unremarkable larynx, hypopharynx, and supraglottic space. Vocal cords intact. MASS: None. GLANDS: Parotid and submandibular glands unremarkable. Normal size thyroid gland, without nodule. LYMPH NODES: Normal. No lymphadenopathy. CERVICAL SPINE: No fracture or focal lesion. OTHER FINDINGS: Minimal mucosal thickening in right maxillary sinus. IMPRESSION: Asymmetry of the nasopharynx. Recommend correlation with direct visualization. Mild mucosal right maxillary sinus otherwise unremarkable. Preliminary interpretation of this examination was reported by [employer] at 6:38 a.m. on 03/26/2017. There is discordance of this report with the preliminary interpretation. Findings in the nasopharynx were not reported in the preliminary report of this examination.
== END 2017-03-26 08:53 | disposition home or self-care (01) ==
LOC: C.ER 02:28
DX: M43.6 Torticollis (principal); R51 Headache
CPT/HCPCS: 70450; 70490; 80053; 83735; 85025; 85610; 85730; 96374; 96375; 96376; 99285; J1885; J2270

== ENCOUNTER 2017-06-02 05:23 | Inpatient (IN) | payer MEDICARE, BC ==
[2017-06-02 05:24] VITALS: BMI 29.0
[2017-06-02 06:02] LABS: BASO % 0.9 % (0.0-2.0); EOS # 0.1 K/uL (0.0-0.7); EOS % 3.6 % (0.0-4.0); HEMATOCRIT 37.4 % (35.0-51.0); LYMPH # 1.4 K/uL (1.0-4.3); LYMPH % 36.3 % (20.0-40.0); MEAN CELL VOLUME 88.2 fL (80.0-94.0); MEAN CORPUSCULAR HEMOGLOBIN 29.3 pg (27.0-31.0); MEAN CORPUSCULAR HGB CONC 33.2 g/dL (33.0-37.0); MEAN PLATELET VOLUME 8.6 fL (7.2-11.7); MONO # 0.7 K/uL (0.0-0.8); MONO % 17.8 % (0.0-10.0); WHITE BLOOD COUNT 3.8 K/uL (4.8-10.8)
--- NOTE | 2017-06-02 06:10 | C.PDOC ---
History Of Present Illness <JackEnid burnham - Last Filed: 06/03/17 22:54> <Kelly Martinez - Last Filed: 06/04/17 07:25> 87 year old male who presents to the ER with a new onset of paresthesia to the left upper extremity since 03:00. Patient states the symptoms woke him up from his sleep, he states "I felt like my whole arm was on fire". Patient is now having residual numbness on the fingertips of the left hand. 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 Denies chest pain, palpitations, or SOB. NEW ONSET PARESTHESIA LUE SINCE 299. PS SX WOKE HIM FROM SLEEP "I FELT LIKE MY WHOLE ARM WAS ON FIRE". NOW RESIDUAL NUMBNESS FINGERTIPS L HAND. HO CHRONIC HEMIPARESIS LUE/LLE FROM PRIOR CVA 2014. EXAM NEURO SEE [facility] GAIT AMBUL WO DIFF REMAINDER NEG (Kelly Martinez) <JackEnid good Nigel - Last Filed: 06/03/17 22:54> History Per: Patient History/Exam Limitations: no limitations Onset/Duration Of Symptoms: Hrs, Sudden Onset Current Symptoms Are (Timing): Still Present Recent travel outside of the [place]: No <Kelly Martinez - Last Filed: 06/04/17 07:25> Time Seen by Provider: 06/02/17 05:53 Chief Complaint (Nursing): Upper Extremity Problem/Injury Past Medical History Family History: States: No Known Family Hx <JackEnid good Nigel - Last Filed: 06/03/17 22:54> Reviewed: Historical Data, Nursing Documentation, Vital Signs - Medical History PMH: COPD, HTN, Hypercholesterolemia, Hypothyroidism Comment Only: Alzheimer's Disease (left sided hemiparesis) Surgical History: Appendectomy (1946), Pacemaker Family History: States: Unknown Family Hx - Social History Hx Tobacco Use: No Hx Alcohol Use: No Hx Substance Use: No - Immunization History Hx Tetanus Toxoid Vaccination: No Hx Influenza Vaccination: No Hx Pneumococcal Vaccination: Yes <Kelly Martinez - Last Filed: 06/04/17 07:25> Vital Signs: Last Vital Signs Temp 97.9 F 06/03/17 15:49 Pulse 60 06/03/17 15:49 Resp 18 06/03/17 15:49 BP 115/63 06/03/17 15:49 Pulse Ox 100 06/03/17 15:49 - [facility] Procedures EXCISION OF DESCENDING COLON, ENDO, DIAGN (01/17/17) EXCISION OF STOMACH, ENDO, DIAGN (01/17/17) Review Of Systems Constitutional: Negative for: Fever, Chills Cardiovascular: Negative for: Chest Pain, Palpitations Respiratory: Negative for: Shortness of Breath Gastrointestinal: Negative for: Nausea, Vomiting Musculoskeletal: Negative for: Neck Pain, Shoulder Pain, Hand Pain Neurological: Positive for: Other (PARESTHESIA) <Kelly Martinez - Last Filed: 06/04/17 07:25> Physical Exam - Physical Exam Appears: Non-toxic Skin: Normal Color, Warm, Dry Head: Atraumatic, Normacephalic Oral Mucosa: Moist Neck: Normal, Supple Chest: Symmetrical, No Tenderness Cardiovascular: Rhythm Regular, No Murmur Respiratory: Normal Breath Sounds, No Rales, No Rhonchi, No Wheezing Gastrointestinal/Abdominal: Soft, No Tenderness Neurological/Psych: Oriented x3, Normal Speech, Normal Cognition, Other (No focal deficits) Gait: Steady <Kelly Martinez - Last Filed: 06/04/17 07:25> ED Course And Treatment - Laboratory Results Result Diagrams: 06/02/17 05:58 06/02/17 05:58 - CT Scan/US ct head Other Rad Studies (CT/US): Read By Radiologist, Radiology Report Reviewed CT/US Interpretation: Accession No. : [id number]. Patient Name / ID : GRACIE Armendariz / [id number]. Exam Date : 06/02/2017 06:23:26 ( Approved ). Study Comment : Sex / Age : M / 87Y. Creator : Omi Stewart MD. Dictator : Tennis Desk Team Member : Lining Cutter : Omi Stewart MD. Approver2 : Report Date : 06/02/2017 06:38:00. My Comment : . [employer]. [facility] Division of Radiology. [address] [place] [id number]. Tel. no. . . . Patient Name: CHANDNI BOWMAN . Pt. Address: [address] [place] [address] 1 [facility]. Rec #: [id number]. [place] [id number] Ordering Dr: Kelly Martinez MD. Pt Order Location: [facility] [place]. : 1930 Male Age: 87 Order #: [id number]. Reason for exam: r/o bleed bed 4. . . . . . CT Scan. . . HEAD W/O CONTRAST Exam Date: 06/02/17. . This imaging exam was performed at [facility]. EXAM: CT Head Without Intravenous Contrast. . CLINICAL HISTORY: 87 years old, male; Signs and symptoms; Altered mental status/memory loss;. Confusion or disorientation; Additional info: R/O bleed bed 4. . TECHNIQUE: Axial computed tomography images of the head/brain without intravenous. contrast. All CT scans at this facility use one or more dose reduction. techniques, viz.: automated exposure control; ma/kV adjustment per patient size. (including targeted exams where dose is matched to indication; i.e. head); or. iterative reconstruction technique. . COMPARISON: No relevant prior studies available. . FINDINGS: Brain: Zgay-ss-ayvxutch atrophy. No intracranial hemorrhage. No mass. Mild encephalomalacia within RIGHT parietal region. Few scattered foci of. decreased attenuation within periventricular/subcortical white matter. No. definite edema. Ventricles: No hydrocephalus. Bones/joints: No acute fracture. Soft tissues: Unremarkable. Vasculature: Minimal atherosclerotic disease of intracranial arteries. Sinuses: Tiny RIGHT sphenoid retention cyst. Mastoid air cells: No mastoid effusion. Orbits: Unremarkable as visualized. . IMPRESSION: 1. No intracranial hemorrhage. 2. Nonspecific white matter changes. Acute infarction may be CT occult within. first 24 hours. If a focal deficit persists, consider followup CT or MRI for. further evaluation. 3. Incidental/non-acute findings are described above. . Dictated By: Omi Stewart MD. Dictated Date/Time: 06/02/17 0638. Signed By: Omi Stewart MD. Date Signed: 06/02/17637. Transcribed By: MEDREC. Transcribe Date/Time: 06/02/17637. ACYP02/MT <Enid Santiago - Last Filed: 06/03/17 22:54> - Laboratory Results Result Diagrams: 06/02/17 05:58 06/02/17 05:58 ECG: Interpreted By Pa ECG Rhythm: AV Paced ECG Interpretation: Normal Rate From EC O2 Sat by Pulse Oximetry: 97 Pulse Ox Interpretation: Normal <Kelly Martinez - Last Filed: 06/04/17 07:25> NIHSS Stroke Scale - Date/Time Evaluation Performed Date Performed: 06/02/17 Time Performed: 06:09 When Was NIHSS Performed: Baseline - How Severe is the Stroke Level of Consciousness: 0=Alert LOC to Questions: 0=Both comments correct LOC to commands: 0=Obeys both correctly Best Gaze: 0=Normal Visual: 0=No visual loss Facial: 0=Normal Motor Arm - Left: 0=No drift Motor Arm - Right: 0=No drift Motor Leg - Left: 0=No drift Motor Leg - Right: 0=No drift Limb Ataxia: 0=Absent Sensory: 1=Mild to moderate loss Best Language: 0=No aphasia Dysarthia: 0=Normal articulation Extinction & Inattention (Neglect): 0=Normal, no object Score: 1 Severity Of Stroke: 1-4 = Minor Stroke <Kelly Martinez - Last Filed: 06/04/17 07:25> rTPA Inclusion/Exclusion - Refusal of Treatment Patient Refused Treatment: No - Inclusion Criteria for Altepase Patient is 18 years or Older: Yes The Clinical Diagnosis of Ischemic Stroke That is Causing a Potentially Disabling Neurological Deficit: Yes Time of Onset is Well Established to be Less Than 270 Minute Before Treatment Would Begin: No <Enid Santiago - Last Filed: 06/03/17 22:54> - Refusal of Treatment Patient Refused Treatment: No - Inclusion Criteria for Altepase Patient is 18 years or Older: Yes The Clinical Diagnosis of Ischemic Stroke That is Causing a Potentially Disabling Neurological Deficit: Yes Time of Onset is Well Established to be Less Than 270 Minute Before Treatment Would Begin: No Risk/Benefit Discussed With Patient/Family Member Present: Yes - Exclusion Criteria for Altepase Uncontrolled Hypertension at Time of Treatment (Systolic BP above 185 or Diastolic BP above 110 mmHg): No Active Internal Bleeding: No Known Bleeding Diathesis Including but Not Limited to: Platelets Below 100,000/ mm,PTT Above 40 sec After Heparin Use, Current Use of Oral Anitcoagulant With INR Greater Than 1.7 or PT Greater Than 15 secs: No Evidence of an Intracranial Hemorrhage: No Evidence of Major Acute Infarct With Signs Greater Than 1/3 MCA Territory: No Suspicion of Subarachnoid Hemorrhage on Pretreatment Evaluation Even if CT Head Negative For Hemorrhage: No - Warning to TPA With Conditions Following Conditions Weighed Against Anticipated Benefit: Yes Condition: Stroke Serevity Too Mild, Age Greater Than 75 years Additional Condition (For 3-4.5 Hour Window): Age Greater Than 80, Prior Stroke and Diabetes <Kelly Martinez - Last Filed: 06/04/17 07:25> Medical Decision Making <Enid Santiago - Last Filed: 06/03/17 22:54> <Kelly Martinez - Last Filed: 06/04/17 07:25> Medical Decision Making: Plan: * EKG * CXR (Kelly Martinez) Disposition - Disposition Disposition Time: 09:13 <Enid Santiago - Last Filed: 06/03/17 22:54> <Kelly Martinez - Last Filed: 06/04/17 07:25> - Disposition Disposition: HOSPITALIZED Condition: STABLE - Clinical Impression Clinical Impression: TIA (transient ischemic attack), CVA (cerebral infarction) <Enid Santiago - Last Filed: 06/03/17 22:54> - Scribe Statement The provider has reviewed the documentation as recorded by the Scribe <Kelly Martinez - Last Filed: 06/04/17 07:25> - Scribe Statement Markie Juan All medical record entries made by the Scribe were at my direction and personally dictated by me. I have reviewed the chart and agree that the record accurately reflects my personal performance of the history, physical exam, medical decision making, and the department course for this patient. I have also personally directed, reviewed, and agree with the discharge instructions and disposition. (Kelly Martinez) Physician Patient Turnover Patient Signed Over To: Enid Santiago Handoff Comments: FU LABS, CT DISPO <Kelly Martinez - Last Filed: 06/04/17 07:25> Addendum <Enid Santiago - Last Filed: 06/03/17 22:54> <Kelly Martinez - Last Filed: 06/04/17 07:25> Addendum: 06/02/17 07:47 Patient currently resting comfortably, c/o mild headache and nausea - PO tylenol and zofran given. He also states his LUE feels heavy and difficult to move (>than at baseline), and still has numbness in his digits. Patient has h/ o CVA, current symptoms concerning for TIA/CVA - will admit to hospital. Pending call back from PMD Dr. Reid. 06/02/17 09:13 Dr. eRid does not admit any more, patient admitted to medicine talent acquisition specialist Dr. Newell for TIA/CVA. Medicine resident notified. (Enid Santiago) Decision To Admit - Pt Status Changed To: Hospital Disposition Of: Inpatient - Admit Certification Admit to Inpatient:: After my assessment, the patient will require hospitalization for at least two midnights. This is because of the severity of symptoms shown, intensity of services needed, and/or the medical risk in this patient being treated as an outpatient. - InPatient: Physician Admission Certification: I certify that this patient requires 2 or more midnights of care for the following reason:: see notes - . Bed Request Type: Telemetry Admitting Physician: Arsenio Newell Jr. <Enid Santiago - Last Filed: 06/03/17 22:54> <Kelly Martinez - Last Filed: 06/04/17 07:25> - . Patient Diagnosis: TIA (transient ischemic attack), CVA (cerebral infarction)
[2017-06-02 06:13] LABS: ALB/GLOB RATIO 1.3 (1.0-2.1); ALKALINE PHOSPHATASE 59 U/L (38-126); ALT/SGPT 33 U/L (21-72); AST/SGOT 31 U/L (17-59); BILIRUBIN,TOTAL 0.3 mg/dL (0.2-1.3); BLOOD UREA NITROGEN 23 mg/dL (9-20); CALCIUM 9.5 mg/dl (8.6-10.4); CARBON DIOXIDE 27 mmol/L (22-30); CHLORIDE 101 mmol/L (98-107); GFR AFRICAN-AMERICAN > 60; GLUCOSE,RANDOM 88 mg/dL (75-110); POTASSIUM 4.1 mmol/L (3.6-5.2); SODIUM 137 mmol/L (132-148); TOTAL PROTEIN 6.6 g/dL (6.3-8.3)
--- NOTE | 2017-06-02 06:38 | CT ---
EXAM: CT Head Without Intravenous Contrast CLINICAL HISTORY: 87 years old, male; Signs and symptoms; Altered mental status/memory loss; Confusion or disorientation; Additional info: R/O bleed bed 4 TECHNIQUE: Axial computed tomography images of the head/brain without intravenous contrast. All CT scans at this facility use one or more dose reduction techniques, viz.: automated exposure control; ma/kV adjustment per patient size (including targeted exams where dose is matched to indication; i.e. head); or iterative reconstruction technique. COMPARISON: No relevant prior studies available. FINDINGS: Brain: Azbw-ev-vddwfugq atrophy. No intracranial hemorrhage. No mass. Mild encephalomalacia within RIGHT parietal region. Few scattered foci of decreased attenuation within periventricular/subcortical white matter. No definite edema. Ventricles: No hydrocephalus. Bones/joints: No acute fracture. Soft tissues: Unremarkable. Vasculature: Minimal atherosclerotic disease of intracranial arteries. Sinuses: Tiny RIGHT sphenoid retention cyst. Mastoid air cells: No mastoid effusion. Orbits: Unremarkable as visualized. IMPRESSION: 1. No intracranial hemorrhage. 2. Nonspecific white matter changes. Acute infarction may be CT occult within first 24 hours. If a focal deficit persists, consider followup CT or MRI for further evaluation. 3. Incidental/non-acute findings are described above.
--- NOTE | 2017-06-02 09:49 | RAD ---
PROCEDURE: CHEST RADIOGRAPH, 1 VIEW HISTORY: TIA COMPARISON: Comparison is made to 02/01/2015 FINDINGS: LUNGS: Small bibasilar opacities are seen likely represent atelectasis. Otherwise no significant interval change. PLEURA: No pneumothorax or pleural fluid seen. CARDIOVASCULAR: Cardiac silhouette is mildly enlarged. Right-sided pacemaker is again seen in place. OSSEOUS STRUCTURES: No significant abnormalities. VISUALIZED UPPER ABDOMEN: Normal. OTHER FINDINGS: None. IMPRESSION: Bibasilar opacities likely atelectasis.
[2017-06-02] MEDS ORDERED: Ergocalciferol 50,000 Intl Units Cap PO SCH (11:45)
[2017-06-02] MEDS ORDERED: Iodixanol 320 MG/ML 100 ML BOTTLE IV ONE (14:08)
--- NOTE | 2017-06-02 14:12 | CP.PCM.HP ---
History of Present Illness - History of Present Illness History of Present Illness: CC: "I had another stroke." HPI: Patient is an 87 year old male with a PMHx of diabetes and CVA in 01/2015, with residual left-sided numbness and tingling, presented to the ED due to stroke- like symptoms. History provided by the patient and his . Patient states that he went to sleep last night in his normal state of health and then woke up between 2:30 and 3:00 AM with burning paresthesias and weakness in his left arm. Symptoms then progressed to a left arm tremor. Patient said these symptoms felt similar to his prior stroke so he told his to call 911. Patient notes associated nausea and vomiting, dizziness, changes in vision, and headache. Patient states that his current symptoms are not as severe as they were when he first noticed them. He denies any chest pain, SOB, palpitation, or changes in speech. PMD: Dr. Shireen Reid Special Librarian: Dr. Alva PMHx CVA in January of 2015 with slight residual weakness Diabetes Mellitus Sick Sinus Syndrome COPD Myositis PSHx Pacemaker placed in 1984 due to a slow heart rate Appendectomy in 194 FHx None per patient Social Former smoker quit in 1974 < 1ppd Last alcoholic drink in 1977 Never used illicit drugs Home Medications: Vit D, Paroxitine 20mg daily, Aricept once daily, Metformin 500mg BID, 50 mcg Levothyroxine, 20mg Atorvastatin; 3.125 Coreg BID, Finestertide 5mg once per day, 10mg Amlodipine once per day. Allergies NKA Present on Admission - Present on Admission Any Indicators Present on Admission: No Review of Systems - Review of Systems Systems not reviewed;Unavailable: Acuity of Condition - Constitutional Constitutional: Weakness - EENT Eyes: absent: Blurred Vision, Pain Ears: Decreased Hearing (chronic) - Cardiovascular Cardiovascular: absent: Chest Pain, Dyspnea, Lightheadedness, Pedal Edema, Rapid Heart Rate - Respiratory Respiratory: absent: Cough, Dyspnea - Gastrointestinal Gastrointestinal: absent: Constipation, Diarrhea, Nausea, Vomiting - Genitourinary Genitourinary: absent: Dysuria - Musculoskeletal Musculoskeletal: Muscle Weakness - Neurological Neurological: absent: Dizziness, Loss of Vision, Syncope, Tingling - Psychiatric Psychiatric: Depression Past Patient History - Infectious Disease Hx of Infectious Diseases: None - Past Medical History & Family History Past Medical History?: Yes - Past Social History Smoking Status: Former Smoker - CARDIAC Hx Hypercholesterolemia: Yes Hx Hypertension: Yes - PULMONARY Hx Chronic Obstructive Pulmonary Disease (COPD): Yes - NEUROLOGICAL HX Cerebrovascular Accident: Yes (residual left side weakness) - HEENT Hx Deafness: Yes (both ears) - ENDOCRINE/METABOLIC Hx Hypothyroidism: Yes - MUSCULOSKELETAL/RHEUMATOLOGICAL Hx Falls: No Other/Comment: unsteady gait, uses cane,, fall precautions bracelet applied on arrival - GENITOURINARY/GYNECOLOGICAL Hx Prostate Problems: Yes (dr. anurag hutson) - PSYCHIATRIC Hx Substance Use: No - SURGICAL HISTORY Hx Appendectomy: Yes (1945) - ANESTHESIA Hx Anesthesia: Yes Hx Anesthesia Reactions: No Hx Malignant Hyperthermia: No Meds Allergies/Adverse Reactions: Allergies Allergy/AdvReac Type Severity Reaction Status Date / Time No Known Allergies Allergy Verified 06/02/17 05:30 Physical Exam - Constitutional Appears: Well - Head Exam Head Exam: ATRAUMATIC, NORMAL INSPECTION, NORMOCEPHALIC Additional comments: left sided facial droop - Eye Exam Eye Exam: EOMI, Normal appearance, PERRL Pupil Exam: NORMAL ACCOMODATION - ENT Exam ENT Exam: Mucous Membranes Moist - Neck Exam Neck exam: Positive for: Normal Inspection - Respiratory Exam Respiratory Exam: Clear to Auscultation Bilateral, NORMAL BREATHING PATTERN - Cardiovascular Exam Cardiovascular Exam: REGULAR RHYTHM, RRR, +S1, +S2. absent: JVD - GI/Abdominal Exam GI & Abdominal Exam: Normal Bowel Sounds, Soft. absent: Distended, Tenderness - Extremities Exam Extremities exam: Negative for: full ROM (decreased range of motion on the left) , pedal edema, tenderness - Neurological Exam Neurological exam: Alert, CN II-XII Intact, Oriented x3 - Expanded Neurological Exam Expanded Patient oriented to: person, place, time Cranial nerves: EOM's Intact: Normal, Facial Palsey w/Forehead Movement: Normal , Facial Palsey w/o Forehead Movement: Normal, Facial Sensation: Normal, Tongue Deviation: Normal Upper motor neuron: Babinski Sign: Normal Sensory exam: Lower Extremity 2 Point Discrimination: Normal, Lower Extremity Light Touch: Normal, Upper Extremity 2 Point Discrimination: Normal, Upper Extremity Light Touch: Normal Neuro motor strength exam: Left Upper Extremity: 5, Right Upper Extremity: 5, Left Lower Extremity: 5, Right Lower Extremity: 5 Coma Scale Eye Opening: SPONTANEOUS Coma Scale Motor Response: OBEYS COMMANDS - Psychiatric Exam Psychiatric exam: Depressed - Skin Skin Exam: Dry, Normal Color, Warm Results - Vital Signs Recent Vital Signs: Last Vital Signs Temp 97.8 F 06/02/17 10:22 Pulse 65 06/02/17 10:22 Resp 18 06/02/17 10:22 BP 171/78 H 06/02/17 10:22 Pulse Ox 95 06/02/17 10:22 - Labs Result Diagrams: 06/02/17 05:58 06/02/17 05:58 Labs: Laboratory Results - last 24 hr 06/02/17 12:53 Hemoglobin A1c 6.1 Assessment & Plan (1) CVA (cerebral infarction) Assessment and Plan: Neurology Consult: Dr. Hull --> help appreciated Neuro Checks q4 Head CT: No intracarnial hemorrhage; non specific white matter changes. f/u carotid doppler f/u ECHO f/u CTA of head and neck Aspirin 81mg daily Crestor 10mg daily Plavix 75mg daily Status: Acute Priority: High (2) History of sick sinus syndrome Assessment and Plan: Cardiology Consult: Dr. Alva --> help appreciated First pacemaker placed in 1984 Status: Acute (3) Depression Assessment and Plan: Started 30mg Paroxetine Status: Acute (4) History of diabetes mellitus Assessment and Plan: Accu checks Insulin sliding scale Heart healthy/carb diet Status: Acute (5) History of hypothyroidism Assessment and Plan: Continue home medication levothyroxine Status: Acute
--- NOTE | 2017-06-02 15:13 | VASCLAB ---
PROCEDURE: HISTORY: s/p TIA COMPARISON: None available. TECHNIQUE: Grayscale and duplex Doppler evaluation of the cervical carotid and vertebral arteries were performed. The common carotid, carotid bifurcations and cervical Internal Carotid Artery (ICA) and proximal External Carotid Artery (ECA) were evaluated. The vertebral arteries were evaluated for gross patency and flow direction. Report prepared by Markie Chu, BS, RVT FINDINGS: RIGHT CAROTID ARTERIES: 1. Common Carotid Artery: No significant focal plaque formation of the right common carotid artery. Maximum Peak Systolic velocity: 61 cm/sec: End-diastolic velocity 7 cm/sec. 2. Carotid Bifurcation: Heterogeneous plaque formation. Maximum Peak Systolic velocity: 75 cm/sec: End-diastolic velocity 9 cm/sec. 3. Internal Carotid Artery: Mild plaque formation of the right proximal proximal ICA which does not results in a hemodynamically significant stenosis. Plaque description: 3.1. Proximal Segment: Peak systolic velocity 67 cm/sec: End-diastolic velocity 10 cm/sec - % stenosis 0-15% 3.2. Middle Segment: Peak systolic velocity 70 cm/sec: End-diastolic velocity 11 cm/sec - % stenosis 0-15% 3.3. Distal Segment: Peak systolic velocity 50 cm/sec: End-diastolic velocity 10 cm/sec - % stenosis 0-15% 4. External Carotid Artery: No significant focal plaque formation. Peak systolic velocity 90 cm/sec 5. ICA/CCA Ratio: 1.2 LEFT CAROTID ARTERIES: 1. Common Carotid Artery: No significant focal plaque formation of the left common carotid artery. Maximum Peak Systolic velocity: 70 cm/sec: End-diastolic velocity 9 cm/sec. 2. Carotid Bifurcation: Calcific plaque formation. Maximum Peak Systolic velocity: 54 cm/sec: End-diastolic velocity 5.1 cm/sec. 3. Internal Carotid Artery: Moderate plaque formation of the left proximal ICA which does not results in hemodynamically significant stenosis. Plaque description: Calcific 3.1. Proximal Segment: Peak systolic velocity 85 cm/sec: End-diastolic velocity 14 cm/sec - % stenosis 0-15% 3.2. Middle Segment: Peak systolic velocity 73 cm/sec: End-diastolic velocity 12 cm/sec - % stenosis 0-15% 3.3. Distal Segment: Peak systolic velocity 60 cm/sec: End-diastolic velocity 9 cm/sec - % stenosis 0-15% 4. External Carotid Artery: No significant focal plaque formation. Peak systolic velocity 71 cm/sec 5. ICA/CCA Ratio: 1.2 VERTEBRAL ARTERIES: 1. Right Vertebral Artery: The right vertebral artery flow direction is antegrade. 2. Left Vertebral Artery: The left vertebral artery flow direction is antegrade. OTHER FINDINGS: 1. Right Brachial Blood pressure: 164 mmHg. 2. Left Brachial Blood pressure: 160 mmHg. IMPRESSION: RIGHT: Duplex scan does not suggest hemodynamically significant stenosis of the right extracranial carotid arteries. LEFT: Duplex scan does not suggest hemodynamically significant stenosis of the left extracranial carotid arteries.
--- NOTE | 2017-06-02 15:33 | CT ---
PROCEDURE: CTA HEAD AND NECK WITH CONTRAST HISTORY: s/p TIA COMPARISON: None available. TECHNIQUE: Initial noncontrast head CT was performed. Subsequently, CT angiogram of the head and neck were performed after the intravenous administration of 80 mL of Omnipaque 350. Contiguous 1.5mm thick images were obtained in the axial plane of the neck. 2-D coronal and sagittal MPR images were obtained. Imaging postprocessing was performed with 3-D images also obtained. A delayed contrast head CT was also obtained. This CT exam was performed using one or more of the following dose reduction techniques: Automated exposure control, adjustment of the mA and/or kV according to patient size, and/or use of iterative reconstruction technique. Contrast dose: 100 ml Radiation dose: Total exam DLP = 610.23 MGy-cm. FINDINGS: HEAD: Right: The intracranial internal carotid artery, and anterior and middle cerebral arteries are widely patent. Left: The intracranial internal carotid artery, and anterior and middle cerebral arteries are widely patent. Posterior circulation: The visualized intracranial vertebral arteries, basilar artery and posterior cerebral arteries are widely patent. The right vertebral artery is hypoplastic, an anatomic variant. There is no endoluminal filling defect to suggest thrombus. There is no intracranial saccular aneurysm. There is no abnormal enhancement on the postcontrast CT. NECK: There is a three vessel aortic arch. There is no stenosis at the origins of the great vessels at the level of the aortic arch. Right Carotid: On the right, the common carotid, internal carotid and external carotid arteries are widely patent. There are mild soft plaques in the proximal internal carotid artery without luminal narrowing. There is no hemodynamically significant stenosis in the internal carotid arteries. Left Carotid: On the left, the common carotid, internal carotid and external carotid arteries are widely patent.There is no hemodynamically significant stenosis in the internal carotid arteries. There are mild atherosclerotic calcifications in the carotid bulbs and proximal internal carotid artery. The vertebral arteries are widely patent. The right vertebral artery is hypoplastic, an anatomic variant. The visualized soft tissues of the neck are normal. The visualized brain and cervical spine are within normal limits. The lung apices are clear. IMPRESSION: No evidence of occlusion, definite significant stenosis or saccular aneurysm. No hemodynamically significant stenosis. The right vertebral artery is hypoplastic, an anatomic variant.
--- NOTE | 2017-06-02 15:38 | CP.PCM.CON ---
History of Present Illness - History of Present Illness History of Present Illness: Mr. 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 Today, he feels that his left arm is slightly weaker than baseline. Review of Systems - Review of Systems All systems: reviewed and no additional remarkable complaints except Past Patient History - Infectious Disease Hx of Infectious Diseases: None - Past Medical History & Family History Past Medical History?: Yes - Past Social History Smoking Status: Former Smoker - CARDIAC Hx Hypercholesterolemia: Yes Hx Hypertension: Yes - PULMONARY Hx Chronic Obstructive Pulmonary Disease (COPD): Yes - NEUROLOGICAL HX Cerebrovascular Accident: Yes (residual left side weakness) - HEENT Hx Deafness: Yes (both ears) - ENDOCRINE/METABOLIC Hx Hypothyroidism: Yes - MUSCULOSKELETAL/RHEUMATOLOGICAL Hx Falls: No Other/Comment: unsteady gait, uses cane,, fall precautions bracelet applied on arrival - GENITOURINARY/GYNECOLOGICAL Hx Prostate Problems: Yes (dr. anurag hutson) - PSYCHIATRIC Hx Substance Use: No - SURGICAL HISTORY Hx Appendectomy: Yes (1945) - ANESTHESIA Hx Anesthesia: Yes Hx Anesthesia Reactions: No Hx Malignant Hyperthermia: No Meds Allergies/Adverse Reactions: Allergies Allergy/AdvReac Type Severity Reaction Status Date / Time No Known Allergies Allergy Verified 06/02/17 05:30 - Medications Medications: Current Medications Aspirin (Ecotrin) 81 mg PO DAILY [facility] Carvedilol (Coreg) 3.125 mg PO BID [facility] Clopidogrel Bisulfate (Plavix) 75 mg PO DAILY [facility] Last Admin: 06/02/17 13:14 Dose: 75 mg Donepezil HCl (Aricept) 5 mg PO HS [facility] Ergocalciferol (Drisdol 50,000 Intl Units Cap) 1 cap PO Q7D [facility] Last Admin: 06/02/17 13:14 Dose: 1 cap Famotidine (Pepcid) 20 mg PO DAILY [facility] Last Admin: 06/02/17 13:15 Dose: 20 mg Insulin Human Regular (Novolin R) 0 unit SC [facility] PRN Reason: Protocol Levothyroxine Sodium (Synthroid) 50 mcg PO DAILY@0630 [facility] Rosuvastatin Calcium (Crestor) 10 mg PO HS [facility] Physical Exam - Constitutional Appears: Well - Head Exam Head Exam: ATRAUMATIC, NORMAL INSPECTION, NORMOCEPHALIC - Eye Exam Eye Exam: Conjunctival injection - ENT Exam ENT Exam: Mucous Membranes Moist, Normal Exam - Neck Exam Neck exam: Positive for: Normal Inspection - Respiratory Exam Respiratory Exam: Clear to Auscultation Bilateral, NORMAL BREATHING PATTERN - Cardiovascular Exam Cardiovascular Exam: REGULAR RHYTHM, +S1, +S2 - GI/Abdominal Exam GI & Abdominal Exam: Normal Bowel Sounds, Soft. absent: Tenderness - Rectal Exam Rectal Exam: Deferred - Extremities Exam Extremities exam: Positive for: normal inspection - Back Exam Back exam: NORMAL INSPECTION - Neurological Exam Neurological exam: Abnormal Gait, Alert, CN II-XII Intact, Oriented x3 - Expanded Neurological Exam Expanded Patient oriented to: person, place, time Cranial nerves: EOM's Intact: Normal, Facial Sensation: Normal Cerebellar Function: Finger to Nose: Abnormal Left Upper motor neuron: Babinski Sign: Abnormal Left, [place] Neglect: Abnormal Left Sensory exam: Lower Extremity Light Touch: Abnormal Left, Lower Extremity Pin Prick: Abnormal Left, Upper Extremity Light Touch: Abnormal Left, Upper Extremity Pin Prick: Abnormal Left Neuro motor strength exam: Left Upper Extremity: 4, Right Upper Extremity: 5, Left Lower Extremity: 3, Right Lower Extremity: 5 DTR: Bicep Left: 3+, Bicep Right: 2+, Patellar Left: 3+, Patellar Right: 2+ - Skin Skin Exam: Dry, Intact, Normal Color, Warm Results - Vital Signs Recent Vital Signs: Last Vital Signs Temp 97.8 F 06/02/17 10:22 Pulse 65 06/02/17 10:22 Resp 18 06/02/17 10:22 BP 171/78 H 06/02/17 10:22 Pulse Ox 95 06/02/17 10:22 - Labs Result Diagrams: 06/02/17 05:58 06/02/17 05:58 Labs: Laboratory Results - last 24 hr 06/02/17 12:53 Hemoglobin A1c 6.1 - Imaging and Cardiology CT scan - head Status: Image reviewed by me, Report reviewed by me (Chronic right parietal lobe infarct, with possible subacute right basal ganglia infarct. ) Assessment & Plan (1) CVA (cerebral infarction) Assessment and Plan: The patient likely had a new subacute stroke involving the right basal ganglia as noted on the CT head. However, the shaking he describes that was uncontrollable probably represents a seizure as well. I recommend the following : 1. Telemetry 2. Repeat CT head in the AM 3. CTA of the head/neck 4. Echocardiogram with bubble study 5. Aspirin 81 mg daily and Plavix 75 mg daily 6. Hydration with NS at 100 mL/hr 7. Keppra 500 mg BID 8. PT/OT eval and treat 9. Crestor 20 mg daily 10. Case management consult Thank you. Status: Acute Priority: High
[2017-06-02] MEDS: (Novolin R) Insulin Human Regular 100 units/ml vial SC SCH ×2 (17:00→22:07)
[2017-06-03] MEDS ORDERED: Levothyroxine 50 MCG TAB PO SCH (06:30)
[2017-06-03] MEDS: (Novolin R) Insulin Human Regular 100 units/ml vial SC SCH ×3 (07:52→17:30)
--- NOTE | 2017-06-03 08:25 | CP.PCM.PN ---
Objective - Vital Signs/Intake and Output Vital Signs (last 24 hours): Temp Pulse Resp BP Pulse Ox 98.3 F 61 20 147/75 98 06/03/17 06:00 06/03/17 06:00 06/03/17 06:00 06/03/17 06:00 06/03/17 06:00 Intake and Output: 06/03/17 06/03/17 06:59 18:59 Intake Total 500 Balance 500 - Medications Medications: Current Medications Aspirin (Ecotrin) 81 mg PO DAILY [facility] Carvedilol (Coreg) 3.125 mg PO BID [facility] Clopidogrel Bisulfate (Plavix) 75 mg PO DAILY [facility] Last Admin: 06/02/17 13:14 Dose: 75 mg Donepezil HCl (Aricept) 10 mg PO HS [facility] Last Admin: 06/02/17 22:30 Dose: 10 mg Ergocalciferol (Drisdol 50,000 Intl Units Cap) 1 cap PO Q7D [facility] Last Admin: 06/02/17 13:14 Dose: 1 cap Famotidine (Pepcid) 20 mg PO DAILY [facility] Last Admin: 06/02/17 13:15 Dose: 20 mg Finasteride (Proscar) 5 mg PO DAILY [facility] Heparin Sodium (Porcine) (Heparin) 5,000 units SC Q8 [facility] Last Admin: 06/03/17 06:13 Dose: 5,000 units Insulin Human Regular (Novolin R) 0 unit SC ACHS [facility] PRN Reason: Protocol Last Admin: 06/03/17 07:52 Dose: Not Given Levetiracetam (Keppra) 500 mg PO BID [facility] Levothyroxine Sodium (Synthroid) 50 mcg PO DAILY@0630 [facility] Last Admin: 06/03/17 06:13 Dose: 50 mcg Paroxetine HCl (Paxil) 30 mg PO DAILY [facility] Rosuvastatin Calcium (Crestor) 20 mg PO HS [facility] - Labs Labs: PT 11.0 SECONDS (9.7-12.2) 06/02/17 05:58 INR 1.0 06/02/17 05:58 APTT 31 SECONDS (21-34) 06/02/17 05:58 Assessment and Plan (1) CVA (cerebral infarction) Status: Acute (2) History of sick sinus syndrome Status: Acute (3) Depression Status: Acute (4) History of diabetes mellitus Status: Acute (5) History of hypothyroidism Status: Acute
[2017-06-03 08:36] VITALS: RESP 18
--- NOTE | 2017-06-03 10:08 | CT ---
PROCEDURE: CT HEAD WITHOUT CONTRAST. HISTORY: s/p TIA COMPARISON: Head CT without 06/02/2017. TECHNIQUE: Axial computed tomography images were obtained through the head/brain without intravenous contrast. Radiation dose: Total exam DLP = 962 mGy-cm. This CT exam was performed using one or more of the following dose reduction techniques: Automated exposure control, adjustment of the mA and/or kV according to patient size, and/or use of iterative reconstruction technique. FINDINGS: HEMORRHAGE: No intracranial hemorrhage. BRAIN: Chronic lacunar infarcts are again seen at the bilateral basal ganglia as well as the right thalamus. A chronic lobar infarction of the right frontal lobe is again identified as well. No interval cortical edema mass effect or intracranial hemorrhage. No suspicious extra-axial collection. VENTRICLES: Unremarkable. No hydrocephalus. CALVARIUM: Unremarkable. PARANASAL SINUSES: Unremarkable as visualized. No significant inflammatory changes. MASTOID AIR CELLS: Unremarkable as visualized. No inflammatory changes. OTHER FINDINGS: None. IMPRESSION: Stable unenhanced head CT with no definitive acute findings by standard CT criteria. Chronic lobar infarction right frontal lobe again evident as well as bilateral basal ganglia right though right thalamic chronic lacunar infarcts MRI is available for follow-up if there is no contraindication or CT.
--- NOTE | 2017-06-03 10:55 | CP.PCM.CON ---
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 He also had history of chronic intractable hiccups with prior workup by GI, not related to the pacemaker. He lives by himself , hx of CVA with weakness, admitted with parasthesia ang ? seizures, uncontrollable jerky limb movement, w/u of new CVA, (basal ganglia), no bleed on CT. observe BP agree with evaluation of Echo, done , NL LV no thrombus, no , in Pacer rhythm Review of Systems - Constitutional Constitutional: Anorexia, Weakness - EENT Eyes: absent: Discharge Ears: absent: Ear Discharge Nose/Mouth/Throat: absent: Epistaxis - Cardiovascular Cardiovascular: absent: Acrocyanosis, Chest Pain, Dyspnea, Palpitations, Syncope - Respiratory Respiratory: absent: Cough, Dyspnea, Hemoptysis - Gastrointestinal Gastrointestinal: Abdominal Pain, Belching. absent: Nausea, Vomiting - Genitourinary Genitourinary: absent: Change in Urinary Stream Past Patient History - Infectious Disease Hx of Infectious Diseases: None - Past Medical History & Family History Past Medical History?: Yes - Past Social History Smoking Status: Former Smoker - CARDIAC Hx Hypercholesterolemia: Yes Hx Hypertension: Yes - PULMONARY Hx Chronic Obstructive Pulmonary Disease (COPD): Yes - NEUROLOGICAL HX Cerebrovascular Accident: Yes (residual left side weakness) - HEENT Hx Deafness: Yes (both ears) - ENDOCRINE/METABOLIC Hx Hypothyroidism: Yes - MUSCULOSKELETAL/RHEUMATOLOGICAL Hx Falls: No Other/Comment: unsteady gait, uses cane,, fall precautions bracelet applied on arrival - GENITOURINARY/GYNECOLOGICAL Hx Prostate Problems: Yes (dr. anurag hutson) - PSYCHIATRIC Hx Substance Use: No - SURGICAL HISTORY Hx Appendectomy: Yes (194) - ANESTHESIA Hx Anesthesia: Yes Hx Anesthesia Reactions: No Hx Malignant Hyperthermia: No Meds Home Medications: Home Medication List Medication Instructions Recorded Confirmed Type PARoxetine [Paxil] 30 mg PO DAILY #30 tab 06/03/17 Rx amLODIPine [Norvasc] 10 mg PO STAT tab 06/03/17 Rx Allergies/Adverse Reactions: Allergies Allergy/AdvReac Type Severity Reaction Status Date / Time No Known Allergies Allergy Verified 06/02/17 05:30 - Medications Medications: Current Medications Aspirin (Ecotrin) 81 mg PO DAILY [facility] Carvedilol (Coreg) 3.125 mg PO BID [facility] Clopidogrel Bisulfate (Plavix) 75 mg PO DAILY [facility] Last Admin: 06/02/17 13:14 Dose: 75 mg Donepezil HCl (Aricept) 10 mg PO HS [facility] Last Admin: 06/02/17 22:30 Dose: 10 mg Ergocalciferol (Drisdol 50,000 Intl Units Cap) 1 cap PO Q7D [facility] Last Admin: 06/02/17 13:14 Dose: 1 cap Famotidine (Pepcid) 20 mg PO DAILY [facility] Last Admin: 06/02/17 13:15 Dose: 20 mg Finasteride (Proscar) 5 mg PO DAILY [facility] Heparin Sodium (Porcine) (Heparin) 5,000 units SC Q8 [facility] Last Admin: 06/03/17 06:13 Dose: 5,000 units Insulin Human Regular (Novolin R) 0 unit SC ACHS [facility] PRN Reason: Protocol Last Admin: 06/03/17 07:52 Dose: Not Given Levetiracetam (Keppra) 500 mg PO BID [facility] Levothyroxine Sodium (Synthroid) 50 mcg PO DAILY@0630 [facility] Last Admin: 06/03/17 06:13 Dose: 50 mcg Paroxetine HCl (Paxil) 30 mg PO DAILY [facility] Rosuvastatin Calcium (Crestor) 20 mg PO HS [facility] Physical Exam - Constitutional Appears: Non-toxic - Head Exam Head Exam: ATRAUMATIC - Eye Exam Eye Exam: EOMI - ENT Exam ENT Exam: Mucous Membranes Moist - Neck Exam Neck exam: Negative for: Lymphadenopathy, Thyromegaly - Respiratory Exam Respiratory Exam: Clear to Auscultation Bilateral. absent: Rales, Wheezes - Cardiovascular Exam Cardiovascular Exam: REGULAR RHYTHM, Systolic Murmur - GI/Abdominal Exam GI & Abdominal Exam: Normal Bowel Sounds. absent: Organomegaly - Rectal Exam Rectal Exam: Deferred - Extremities Exam Extremities exam: Positive for: normal capillary refill. Negative for: calf tenderness - Neurological Exam Neurological exam: Alert, Oriented x3 - Psychiatric Exam Psychiatric exam: Flat Affect - Skin Skin Exam: Dry Results - Vital Signs Recent Vital Signs: Last Vital Signs Temp 97.8 F 06/03/17 07:35 Pulse 61 06/03/17 07:35 Resp 18 06/03/17 07:35 BP 148/73 06/03/17 07:35 Pulse Ox 98 06/03/17 07:35 - Labs Result Diagrams: 06/02/17 05:58 06/02/17 05:58 Labs: Laboratory Results - last 24 hr 06/02/17 06/02/17 06/02/17 12:53 16:36 20:56 POC Glucose (mg/dL) 107 102 Hemoglobin A1c 6.1 06/03/17 06:21 POC Glucose (mg/dL) 117 H Hemoglobin A1c Assessment & Plan (1) CVA (cerebral infarction) Status: Acute Priority: High Comment: ? acute, f/u with Echo (2) History of sick sinus syndrome Status: Chronic Comment: stable (3) Hypertension Status: Chronic (4) Status post biventricular cardiac pacemaker insertion Status: Chronic
--- NOTE | 2017-06-03 14:48 | CP.PCM.DIS ---
Provider - Provider Date of Admission: 06/02/17 09:08 Attending physician: Arsenio Newell Jr, MD Primary care physician: Shireen Reid MD Time Spent in preparation of Discharge (in minutes): 40 Diagnosis - Discharge Diagnosis (1) CVA (cerebral infarction) Status: Acute Priority: High (2) History of sick sinus syndrome Status: Chronic (3) Depression Status: Acute (4) History of diabetes mellitus Status: Acute (5) History of hypothyroidism Status: Acute Hospital Course - Lab Results Lab Results: Most Recent Lab Values WBC 3.8 K/uL (4.8-10.8) L D 06/02/17 05:58 RBC 4.24 Mil/uL (4.40-5.90) L 06/02/17 05:58 Hgb 12.4 g/dL (12.0-18.0) 06/02/17 05:58 Hct 37.4 % (35.0-51.0) 06/02/17 05:58 MCV 88.2 fL (80.0-94.0) 06/02/17 05:58 MCH 29.3 pg (27.0-31.0) 06/02/17 05:58 MCHC 33.2 g/dL (33.0-37.0) 06/02/17 05:58 RDW 15.0 % (11.5-14.5) H 06/02/17 05:58 Plt Count 118 K/uL (130-400) L D 06/02/17 05:58 MPV 8.6 fL (7.2-11.7) 06/02/17 05:58 Neut % (Auto) 41.4 % (50.0-75.0) L 06/02/17 05:58 Lymph % (Auto) 36.3 % (20.0-40.0) 06/02/17 05:58 Blaine % (Auto) 17.8 % (0.0-10.0) H 06/02/17 05:58 Eos % (Auto) 3.6 % (0.0-4.0) 06/02/17 05:58 Baso % (Auto) 0.9 % (0.0-2.0) 06/02/17 05:58 Neut # 1.6 K/uL (1.8-7.0) L 06/02/17 05:58 Lymph # 1.4 K/uL (1.0-4.3) 06/02/17 05:58 Blaine # 0.7 K/uL (0.0-0.8) 06/02/17 05:58 Eos # 0.1 K/uL (0.0-0.7) 06/02/17 05:58 Baso # 0.0 K/uL (0.0-0.2) 06/02/17 05:58 PT 11.0 SECONDS (9.7-12.2) 06/02/17 05:58 INR 1.0 06/02/17 05:58 APTT 31 SECONDS (21-34) 06/02/17 05:58 Sodium 137 mmol/L (132-148) 06/02/17 05:58 Potassium 4.1 mmol/L (3.6-5.2) 06/02/17 05:58 Chloride 101 mmol/L (98-107) 06/02/17 05:58 Carbon Dioxide 27 mmol/L (22-30) 06/02/17 05:58 Anion Gap 13 (10-20) 06/02/17 05:58 BUN 23 mg/dL (9-20) H 06/02/17 05:58 Creatinine 0.9 MG/DL (0.8-1.5) 06/02/17 05:58 Est GFR ( Amer) > 60 06/02/17 05:58 Est GFR (Non-Af Amer) > 60 06/02/17 05:58 POC Glucose (mg/dL) 171 mg/dL (65-110) H 06/03/17 12:11 Random Glucose 88 mg/dL (75-110) 06/02/17 05:58 Hemoglobin A1c 6.1 % (4.2-6.5) 06/02/17 12:53 Calcium 9.5 mg/dl (8.6-10.4) 06/02/17 05:58 Total Bilirubin 0.3 mg/dL (0.2-1.3) 06/02/17 05:58 AST 31 U/L (17-59) 06/02/17 05:58 ALT 33 U/L (21-72) 06/02/17 05:58 Alkaline Phosphatase 59 U/L (38-126) 06/02/17 05:58 Total Creatine Kinase 313 U/L (55-170) H 06/02/17 05:58 CK-MB (Mass) 3.26 ng/mL (0.0-3.38) 06/02/17 05:58 Troponin I, Quant 0.0170 ng/mL (0.00-0.120) 06/02/17 05:58 NT-Pro-B Natriuret Pep 210 pg/mL (0-900) 06/02/17 05:58 Total Protein 6.6 g/dL (6.3-8.3) 06/02/17 05:58 Albumin 3.7 g/dL (3.5-5.0) 06/02/17 05:58 Globulin 2.9 gm/dL (2.2-3.9) 06/02/17 05:58 Albumin/Globulin Ratio 1.3 (1.0-2.1) 06/02/17 05:58 - Hospital Course Hospital Course: CC: "I had another stroke." HPI: Patient is an 87 year old male with a PMHx of diabetes and CVA in 01/2015, with residual left-sided numbness and tingling, presented to the ED due to stroke- like symptoms. History provided by the patient and his . Patient states that he went to sleep last night in his normal state of health and then woke up between 2:30 and 3:00 AM with burning paresthesias and weakness in his left arm. Symptoms then progressed to a left arm tremor. Patient said these symptoms felt similar to his prior stroke so he told his to call 911. Patient notes associated nausea and vomiting, dizziness, changes in vision, and headache. Patient states that his current symptoms are not as severe as they were when he first noticed them. He denies any chest pain, SOB, palpitation, or changes in speech. PMD: Dr. Shireen Reid [employer] Specialist: Dr. Alva PMHx CVA in January of 2015 with slight residual weakness Diabetes Mellitus Sick Sinus Syndrome COPD Myositis PSHx Pacemaker placed in 1984 due to a slow heart rate Appendectomy in 1947 FHx None per patient Social Former smoker quit in 1974 < 1ppd Last alcoholic drink in 1977 Never used illicit drugs Home Medications: Vit D, Paroxitine 20mg daily, Aricept once daily, Metformin 500mg BID, 50 mcg Levothyroxine, 20mg Atorvastatin; 3.125 Coreg BID, Finestertide 5mg once per day, 10mg Amlodipine once per day. Allergies NKA Hospital Course: Neurology was consulted Dr. Hull. Head CT on admission 06/02 showed no intracranital hemorrhage. Head CT 06/03 showed chronic lobar infarction right frontal lobe and bilateral ganglia right through right thalamic chronic lacunar infarcts. Head neck CTA: showed no evidence of occlusion. Carotid doppler showed no hemodynamically significant stenosis on the right or left carotid arteries. Cardiology Dr. Alva was consulted. ECHO was done and patient will follow up as an outpatient. Patient neurologically improved and was hemodynamically stable. Patient stable for discharge per Dr. Newell. Patient to follow up with primary care doctor in one week. Patient to restart home medications. Patient to start new medication: Paroxetine 30mg PO daily Patient to return to the emergency department if symptoms worsen. This is a brief summary of events. For a complete course, refer to the medical record. Discharge Exam - Head Exam Head Exam: ATRAUMATIC, NORMAL INSPECTION, NORMOCEPHALIC Discharge Plan - Discharge Medications Prescriptions: PARoxetine [Paxil] 30 mg PO DAILY #30 tab - Follow Up Plan Condition: STABLE Disposition: HOME/ ROUTINE Instructions: Paroxetine (By mouth), Transient Ischemic Attack (DC), Heart Healthy Diet (DC), Depression (DC), Hypothyroidism (DC), Diabetic Foot Care (DC) , Diabetes Mellitus Type 2 in Adults (DC) Additional Instructions: Follow up with Dr. Avila in [address] Hull. Please call on 06/05 to schedule appointment for follow up in 2 weeks. Patient to follow up with primary care doctor in one week. Please call on Monday06/05/17 for appointment . Pt. to restart home medications as instructed. Pt. to start new medication Paroxetine 30mg po daily as instructed. Pt. to return to the [facility] department if symptoms worsen. Referrals: Issac Avila MD [Staff Provider] - Shireen Reid MD [Primary Care Provider] -
[2017-06-03 15:53] VITALS: BP 115/63; PULSE 60; TEMP 97.9
[2017-06-04 07:25] VITALS: O2SAT 97
--- NOTE | 2017-06-04 09:17 | CARD ---
APPROVED REPORT EXAM: Two-dimensional and M-mode echocardiogram with Doppler and color Doppler. Other Information Quality : GoodRhythm : INDICATION CVA/TIA Surgery/Intervention Pacemaker: Date: 1987 RISK FACTORS Hypertension Diabetes M-Mode DIMENSIONS RVDd3.09 (2.1-3.2cm)Left Atrium (MM)4.92 (2.5-4.0cm) IVSd1.35 (0.7-1.1cm)Aortic Root3.40 (2.2-3.7cm) LVDd4.58 (4.0-5.6cm)Aortic Cusp Exc.1.99 (1.5-2.0cm) PWd1.35 (0.7-1.1cm)FS (%) 37 % LVDs2.88 (2.0-3.8cm)LVEF (%)67 (>50%) Aortic Valve AI P 1/2 [id number] Mitral Valve MV E Yksempcy67.1cm/sMV A Wsgcrgjt20.2cm/sE/A ratio0.5 TDI E/Lateral E'0.0E/Medial E'0.0 Tricuspid Valve TR Peak Vgewosyd157lc/sTR Peak Gr.43llMoODEZ52vzGo LEFT VENTRICLE The left ventricle is normal size. There is moderate to severe asymmetric left ventricular hypertrophy. Left ventricle systolic function is normal. The Ejection Fraction is 65-70%. Transmitral Doppler flow pattern is Grade I-abnormal relaxation pattern. No left ventricle thrombus noted on this study. There is no ventricular septal defect visualized. RIGHT VENTRICLE The right ventricle is normal size. The right ventricular systolic function is normal. ATRIA The left atrium is moderately dilated. The right atrium size is normal. The interatrial septum is intact with no evidence for an atrial septal defect. AORTIC VALVE The aortic valve is mildly thickened. There is mild aortic regurgitation. There is no aortic valvular stenosis. There is no aortic valvular vegetation. MITRAL VALVE The mitral valve is normal in structure. There is no mitral valve stenosis. Mitral regurgitation is mild. TRICUSPID VALVE The tricuspid valve is normal in structure. There is mild tricuspid regurgitation. There is no tricuspid valve prolapse or vegetation. There is no tricuspid valve stenosis. PULMONIC VALVE The pulmonary valve is normal in structure. There is mild pulmonic valvular regurgitation. GREAT VESSELS The aortic root is normal in size. Mild Pulmonary HTN <Conclusion> Left ventricle systolic function is normal. The Ejection Fraction is 65-70%. Transmitral Doppler flow pattern is Grade I-abnormal relaxation pattern. The left atrium is moderately dilated. There is mild aortic regurgitation. Pacemaker wire in Right heart noted
--- NOTE | 2017-06-04 09:28 | CARD ---
APPROVED REPORT EKG Measurement Heart [id number] <Conclusion> AV dual-paced rhythm Abnormal ECG
== END 2017-06-03 20:20 | disposition home or self-care (01) | DRG 57 ==
LOC: C.ER 05:23 → SUPCPDRO 05:23 → C.6T 09:08
PROVIDERS: ADMIT Internal Medicine; ATTEND Internal Medicine
DX: I69.254 Hemiplegia and hemiparesis following other nontraumatic intracranial hemorrhage affecting left non-dominant side (principal); J44.9 Chronic obstructive pulmonary disease, unspecified; G30.9 Alzheimer's disease, unspecified; F02.80 Dementia in other diseases classified elsewhere, unspecified severity, without behavioral disturbance, psychotic disturbance, mood disturbance, and anxiety; E11.9 Type 2 diabetes mellitus without complications; I10 Essential (primary) hypertension; I25.10 Atherosclerotic heart disease of native coronary artery without angina pectoris; E03.9 Hypothyroidism, unspecified; Z87.891 Personal history of nicotine dependence; Z95.0 Presence of cardiac pacemaker

== ENCOUNTER 2018-10-15 08:58 | Outpatient (CLI) | payer MEDICARE | END 2018-10-15 08:59 | disposition home or self-care (01) | LOC: C.CARD 08:58 ==